=== PATIENT | male | born 1990 | race Caucasian/White ===

== ENCOUNTER 2020-01-10 10:59 | Emergency (ER) | payer MEDICAID, OTHER ==
--- NOTE | 2020-01-10 11:30 | EDM.PDOC ---
ED HPI GENERAL MEDICAL PROBLEM - General Chief Complaint: Abdominal Pain Stated Complaint: SEVERE ABD PAIN Time Seen by Provider: 01/10/20 11:23 - History of Present Illness INITIAL COMMENTS - FREE TEXT/NARRATIVE: Chris comes into [facility] ED with a 1/2 hr onset of acute periumbilical abdominal pain, nonradiating, with colicky features. There is some nausea, but no vomiting or diarrhea. He has no known GI or disorder, general health good, drank 2 beers and smoked 1 bowl (cannabis) last pm. He has tried no meds. Bilateral Middle Abdomen Pain Score (Numeric/FACES): 10 - Related Data Allergies Allergy/AdvReac Type Severity Reaction Status Date / Time amoxicillin Allergy Vomiting Verified 01/10/20 11:12 chloral hydrate Allergy Paralysis Verified 01/10/20 11:12 Penicillins Allergy Vomiting Verified 01/10/20 11:12 trazodone Allergy Vomiting Verified 01/10/20 11:12 Home Meds: Home Meds NK [No Known Home Meds] 01/10/20 [History] ED ROS GENERAL - Review of Systems Review Of Systems: See Below Constitutional: Reports: Decreased Appetite HEENT: Reports: No Symptoms Respiratory: Reports: No Symptoms Cardiovascular: Reports: No Symptoms Endocrine: Reports: No Symptoms GI/Abdominal: Reports: Abdominal Pain, Decreased Appetite, Nausea : Reports: No Symptoms Musculoskeletal: Reports: No Symptoms Skin: Reports: No Symptoms Neurological: Reports: No Symptoms Psychiatric: Reports: Anxiety Hematologic/Lymphatic: Reports: No Symptoms Immunologic: Reports: No Symptoms ED EXAM, GI/ABD - Physical Exam Exam: See Below Exam Limited By: No Limitations General Appearance: Alert, WD/WN, Anxious, Moderate Distress, Thin Eyes: Bilateral: Normal Appearance, EOMI Ears: Normal External Exam Nose: Normal Inspection Throat/Mouth: Normal Inspection, Normal Lips, Normal Oropharynx, Normal Voice, No Airway Compromise Head: Normocephalic Neck: Normal Inspection, Supple, Non-Tender, Full Range of Motion Respiratory/Chest: Lungs Clear, Chest Non-Tender Cardiovascular: Regular Rate, Rhythm, No Edema, No Murmur GI/Abdominal Exam: Normal Bowel Sounds, No Organomegaly, No Distention, No Mass , Guarding (periumbilical and RUQ without rebound or rigidity), Tender (Male) Exam: No Hernia Rectal (Males) Exam: Deferred Back Exam: Normal Inspection Extremities: Normal Inspection Neurological: Alert, Oriented, CN II-XII Intact, Normal Cognition, No Motor/ Sensory Deficits Psychiatric: Normal Affect, Anxious Skin Exam: Warm, Dry, Intact, Normal Color, No Rash Lymphatic: No Adenopathy Course - Vital Signs Text/Narrative:: Following assessment, I started an IV in the RUE, and administered Toradol 30 mg IV and Vistaril 50 mg IM for sx relief. Abd-Pelvis CT w and wo contrast noted pyeloectasis and ureteroectasis on the R, with nonspecific bladder wall thickening. Incidental finding of some small bowel wall thickening of unknown significance. Chris was administed Toradol 30 mg IV x 2, and Dilaudid 2 mg IV for pain managment prior to discharge. He passed 3 small stones, and these were sent for analysis. Follow up with PCP. Last Recorded V/S: Last Vital Signs Temp 98.3 C H 01/10/20 11:16 Pulse 69 01/10/20 11:16 Resp 16 01/10/20 11:16 BP 167/102 H 01/10/20 11:16 Pulse Ox 100 01/10/20 11:16 - Orders/Labs/Meds Orders: Active Orders 24 hr Category Date Time Status Abdomen Pelvis w Cont [CT] Stat Exams 01/10/20 13:34 Taken STONE ANALYSIS Routine Lab 01/10/20 15:24 Ordered URIC ACID [CHEM] Stat Lab 01/10/20 15:20 Ordered Sodium Chloride 0.9% [Normal Saline] 1,000 ml Med 01/10/20 11:45 Active IV ASDIRECTED Sodium Chloride 0.9% [Saline Flush] Med 01/10/20 11:31 Active 10 ml FLUSH ASDIRECTED PRN Peripheral IV Insertion Adult [OM.PC] Routine Oth 01/10/20 11:31 Ordered Medication Orders Sodium Chloride (Normal Saline) 1,000 mls @ 500 mls/hr IV ASDIRECTED DIETER Last Admin: 01/10/20 11:45 Dose: 500 mls/hr Sodium Chloride (Saline Flush) 10 ml FLUSH ASDIRECTED PRN PRN Reason: Keep Vein Open Labs: Laboratory Tests 01/10/20 01/10/20 01/10/20 Range/Units 11:30 11:30 11:35 WBC 8.1 (4.5-12.0) X10-3/uL RBC 4.90 (4.30-5.75) x10(6)uL Hgb 15.2 (13.5-17.8) g/dL Hct 45.0 (30.0-51.3) % MCV 92.0 (80-96) fL MCH 31.0 (27.7-33.6) pg MCHC 33.7 (32.2-35.4) g/dL RDW 14.0 (11.5-15.5) % Plt Count 254 (125-369) X10(3)uL MPV 8.2 (7.4-10.4) fL Neut % (Auto) 67.9 (46-82) % Lymph % (Auto) 18.5 (13-37) % [place] % (Auto) 11.0 (4-12) % Eos % (Auto) 1 (1.0-5.0) % Baso % (Auto) 2 (0-2) % Neut # (Auto) 5.5 (1.6-8.3) # Lymph # (Auto) 1.5 (0.6-5.0) # [place] # (Auto) 0.9 (0.0-1.3) # Eos # (Auto) 0.1 (0.0-0.8) # Baso # (Auto) 0.1 (0.0-0.2) # ESR 7 (0-15) mm/hr PT (9.0-11.1) sec INR (1.00-1.24) Sodium 141 (135-145) mmol/L Potassium 3.9 (3.5-5.3) mmol/L Chloride 102 (100-110) mmol/L Carbon Dioxide 21 (21-32) mmol/L BUN 7 (7-18) mg/dL Creatinine 1.3 (0.70-1.30) mg/dL Est Cr Clr Drug Dosing 77.83 mL/min Estimated GFR (MDRD) > 60 (>60) BUN/Creatinine Ratio 5.4 L (9-20) Glucose 125 H (80-116) mg/dL Lactic Acid (0.4-2.0) mmol/L Calcium 8.8 (8.6-10.2) mg/dL Total Bilirubin 0.6 (0.1-1.3) mg/dL AST 106 H (5-25) IU/L ALT 186 H* (12-36) U/L Alkaline Phosphatase 70 (56-112) IU/L C-Reactive Protein (0.5-0.9) mg/dL Total Protein 7.5 (6.0-8.0) g/dL Albumin 4.2 (3.5-5.2) g/dL Globulin 3.3 g/dL Albumin/Globulin Ratio 1.3 Amylase (25-115) U/L Urine Color (YELLOW) Urine Appearance (CLEAR) Urine pH (5.0-6.5) Ur Specific [place] (1.010-1.025) Urine Protein (NEGATIVE) mg/dL Urine Glucose (UA) (NORMAL) mg/dL Urine Ketones (NEGATIVE) mg/dL Urine Occult Blood (NEGATIVE) Urine Nitrite (NEGATIVE) Urine Bilirubin (NEGATIVE) Urine Urobilinogen (NEGATIVE) mg/dL Ur Leukocyte Esterase (NEGATIVE) Urine RBC (0-5) Urine WBC (0-5) Ur Squamous Epith Cells (NS,R,O) Urine Bacteria (NS) Urine Opiates Screen (NEGATIVE) Ur Oxycodone Screen (NEGATIVE) Ur Propoxyphene Screen (NEGATIVE) Ur Barbituates Screen (NEGATIVE) Ur Tricyclics Screen (NEGATIVE) Ur Phencyclidine Scrn (NEGATIVE) Ur Amphetamine Screen (NEGATIVE) Urine MDMA Screen (NEGATIVE) U Benzodiazepines Scrn (NEGATIVE) U Cocaine Metab Screen (NEGATIVE) U Marijuana (THC) Screen (NEGATIVE) 01/10/20 01/10/20 01/10/20 Range/Units 11:35 11:35 11:35 WBC (4.5-12.0) X10-3/uL RBC (4.30-5.75) x10(6)uL Hgb (13.5-17.8) g/dL Hct (30.0-51.3) % MCV (80-96) fL MCH (27.7-33.6) pg MCHC (32.2-35.4) g/dL RDW (11.5-15.5) % Plt Count (125-369) X10(3)uL MPV (7.4-10.4) fL Neut % (Auto) (46-82) % Lymph % (Auto) (13-37) % [place] % (Auto) (4-12) % Eos % (Auto) (1.0-5.0) % Baso % (Auto) (0-2) % Neut # (Auto) (1.6-8.3) # Lymph # (Auto) (0.6-5.0) # [place] # (Auto) (0.0-1.3) # Eos # (Auto) (0.0-0.8) # Baso # (Auto) (0.0-0.2) # ESR (0-15) mm/hr PT 10.1 (9.0-11.1) sec INR 0.94 L (1.00-1.24) Sodium (135-145) mmol/L Potassium (3.5-5.3) mmol/L Chloride (100-110) mmol/L Carbon Dioxide (21-32) mmol/L BUN (7-18) mg/dL Creatinine (0.70-1.30) mg/dL Est Cr Clr Drug Dosing mL/min Estimated GFR (MDRD) (>60) BUN/Creatinine Ratio (9-20) Glucose (80-116) mg/dL Lactic Acid (0.4-2.0) mmol/L Calcium (8.6-10.2) mg/dL Total Bilirubin (0.1-1.3) mg/dL AST (5-25) IU/L ALT (12-36) U/L Alkaline Phosphatase (56-112) IU/L C-Reactive Protein 0.2 L (0.5-0.9) mg/dL Total Protein (6.0-8.0) g/dL Albumin (3.5-5.2) g/dL Globulin g/dL Albumin/Globulin Ratio Amylase 48 (25-115) U/L Urine Color (YELLOW) Urine Appearance (CLEAR) Urine pH (5.0-6.5) Ur Specific [place] (1.010-1.025) Urine Protein (NEGATIVE) mg/dL Urine Glucose (UA) (NORMAL) mg/dL Urine Ketones (NEGATIVE) mg/dL Urine Occult Blood (NEGATIVE) Urine Nitrite (NEGATIVE) Urine Bilirubin (NEGATIVE) Urine Urobilinogen (NEGATIVE) mg/dL Ur Leukocyte Esterase (NEGATIVE) Urine RBC (0-5) Urine WBC (0-5) Ur Squamous Epith Cells (NS,R,O) Urine Bacteria (NS) Urine Opiates Screen (NEGATIVE) Ur Oxycodone Screen (NEGATIVE) Ur Propoxyphene Screen (NEGATIVE) Ur Barbituates Screen (NEGATIVE) Ur Tricyclics Screen (NEGATIVE) Ur Phencyclidine Scrn (NEGATIVE) Ur Amphetamine Screen (NEGATIVE) Urine MDMA Screen (NEGATIVE) U Benzodiazepines Scrn (NEGATIVE) U Cocaine Metab Screen (NEGATIVE) U Marijuana (THC) Screen (NEGATIVE) 01/10/20 01/10/20 01/10/20 Range/Units 12:15 12:15 13:35 WBC (4.5-12.0) X10-3/uL RBC (4.30-5.75) x10(6)uL Hgb (13.5-17.8) g/dL Hct (30.0-51.3) % MCV (80-96) fL MCH (27.7-33.6) pg MCHC (32.2-35.4) g/dL RDW (11.5-15.5) % Plt Count (125-369) X10(3)uL MPV (7.4-10.4) fL Neut % (Auto) (46-82) % Lymph % (Auto) (13-37) % [place] % (Auto) (4-12) % Eos % (Auto) (1.0-5.0) % Baso % (Auto) (0-2) % Neut # (Auto) (1.6-8.3) # Lymph # (Auto) (0.6-5.0) # [place] # (Auto) (0.0-1.3) # Eos # (Auto) (0.0-0.8) # Baso # (Auto) (0.0-0.2) # ESR (0-15) mm/hr PT (9.0-11.1) sec INR (1.00-1.24) Sodium (135-145) mmol/L Potassium (3.5-5.3) mmol/L Chloride (100-110) mmol/L Carbon Dioxide (21-32) mmol/L BUN (7-18) mg/dL Creatinine (0.70-1.30) mg/dL Est Cr Clr Drug Dosing mL/min Estimated GFR (MDRD) (>60) BUN/Creatinine Ratio (9-20) Glucose (80-116) mg/dL Lactic Acid 0.9 (0.4-2.0) mmol/L Calcium (8.6-10.2) mg/dL Total Bilirubin (0.1-1.3) mg/dL AST (5-25) IU/L ALT (12-36) U/L Alkaline Phosphatase (56-112) IU/L C-Reactive Protein (0.5-0.9) mg/dL Total Protein (6.0-8.0) g/dL Albumin (3.5-5.2) g/dL Globulin g/dL Albumin/Globulin Ratio Amylase (25-115) U/L Urine Color Yellow (YELLOW) Urine Appearance Slightly cloudy (CLEAR) Urine pH 8.0 H (5.0-6.5) Ur Specific [place] 1.010 (1.010-1.025) Urine Protein Negative (NEGATIVE) mg/dL Urine Glucose (UA) Normal (NORMAL) mg/dL Urine Ketones 50 H (NEGATIVE) mg/dL Urine Occult Blood Large H (NEGATIVE) Urine Nitrite Negative (NEGATIVE) Urine Bilirubin Negative (NEGATIVE) Urine Urobilinogen Normal (NEGATIVE) mg/dL Ur Leukocyte Esterase Negative (NEGATIVE) Urine RBC >100 H (0-5) Urine WBC 0-5 (0-5) Ur Squamous Epith Cells Rare (NS,R,O) Urine Bacteria Rare H (NS) Urine Opiates Screen Negative (NEGATIVE) Ur Oxycodone Screen Negative (NEGATIVE) Ur Propoxyphene Screen Negative (NEGATIVE) Ur Barbituates Screen Negative (NEGATIVE) Ur Tricyclics Screen Negative (NEGATIVE) Ur Phencyclidine Scrn Negative (NEGATIVE) Ur Amphetamine Screen Negative (NEGATIVE) Urine MDMA Screen Negative (NEGATIVE) U Benzodiazepines Scrn Negative (NEGATIVE) U Cocaine Metab Screen Negative (NEGATIVE) U Marijuana (THC) Screen Positive H (NEGATIVE) Meds: Medications Generic Name Dose Route Start Last Admin Trade Name Freq PRN Reason Stop Dose Admin Sodium Chloride 1,000 mls @ 500 mls/hr 01/10/20 11:45 01/10/20 11:45 Normal Saline IV 500 mls/hr ASDIRECTED DIETER Administration Sodium Chloride 10 ml 01/10/20 11:31 Saline Flush FLUSH ASDIRECTED PRN Keep Vein Open Discontinued Medications Generic Name Dose Route Start Last Admin Trade Name Freq PRN Reason Stop Dose Admin Diatrizoate Meglum/Diatrizoate Sod 30 ml 01/10/20 14:31 01/10/20 14:47 Gastrografin 37% PO 01/10/20 14:32 30 ml . DIRECTED ONE Administration Hydromorphone HCl 2 mg 01/10/20 12:47 01/10/20 12:50 Dilaudid IVPUSH 01/10/20 12:48 2 mg ONETIME ONE Administration Hydroxyzine HCl 50 mg 01/10/20 11:33 01/10/20 11:47 Vistaril IM 01/10/20 11:34 50 mg ONETIME ONE Administration Iopamidol 75 ml 01/10/20 14:31 01/10/20 14:49 Isovue-370 (76%) IV 01/10/20 14:32 Not Given ONETIME ONE Iopamidol 100 ml 01/10/20 14:49 01/10/20 14:50 Isovue-370 (76%) IV 01/10/20 14:50 75 ml . DIRECTED ONE Administration Ketorolac Tromethamine 30 mg 01/10/20 11:33 01/10/20 11:45 Toradol IVPUSH 01/10/20 11:34 30 mg ONETIME ONE Administration Departure - Departure Time of Disposition: 15:29 Disposition: Home, Self-Care 01 Condition: Fair Clinical Impression: Renal lithiasis - Discharge Information *PRESCRIPTION DRUG MONITORING PROGRAM REVIEWED*: Not Applicable *COPY OF PRESCRIPTION DRUG MONITORING REPORT IN PATIENT KELLY: Not Applicable Forms: ED Department Discharge Sepsis Event Note - Evaluation Sepsis Screening Result: No Definite Risk - Focused Exam Vital Signs: Vital Signs Temp Pulse Resp BP Pulse Ox 01/10/20 11:16 98.3 C H 69 16 167/102 H 100 Date Exam was Performed: 01/10/20 Time Exam was Performed: 15:24 - Problem List & Annotations (1) Renal lithiasis SNOMED Code(s): 09832436 Code(s): N20.0 - CALCULUS OF KIDNEY Status: Acute Current Visit: Yes Annotation/Comment:: I suggested rest, fluids, and analgesic of choice. - Problem List Review Problem List Initiated/Reviewed/Updated: Yes - My Orders Last 24 Hours: My Active Orders 01/10/20 11:31 Sodium Chloride 0.9% [Saline Flush] 10 ml FLUSH ASDIRECTED PRN Peripheral IV Insertion Adult [OM.PC] Routine 01/10/20 11:45 Sodium Chloride 0.9% [Normal Saline] 1,000 ml IV ASDIRECTED 01/10/20 13:34 Abdomen Pelvis w Cont [CT] Stat 01/10/20 15:20 URIC ACID [CHEM] Stat 01/10/20 15:24 STONE ANALYSIS Routine - Assessment/Plan Last 24 Hours: My Active Orders 01/10/20 11:31 Sodium Chloride 0.9% [Saline Flush] 10 ml FLUSH ASDIRECTED PRN Peripheral IV Insertion Adult [OM.PC] Routine 01/10/20 11:45 Sodium Chloride 0.9% [Normal Saline] 1,000 ml IV ASDIRECTED 01/10/20 13:34 Abdomen Pelvis w Cont [CT] Stat 01/10/20 15:20 URIC ACID [CHEM] Stat 01/10/20 15:24 STONE ANALYSIS Routine Plan: Follow up with PCP for results of stone analysis.
[2020-01-10] MEDS ORDERED: Sodium Chloride 0.9% 10 ML Syringe FLUSH PRN (11:31)
[2020-01-10] MEDS ORDERED: hydrOXYzine HCl 50 MG/ML SDV IM ONE (11:33)
[2020-01-10] MEDS ORDERED: Ketorolac 30 MG/ML SDV IVPUSH ONE ×2 (11:33→15:26)
[2020-01-10] MEDS ORDERED: Sodium Chloride 0.9% 1,000 ML IV SCH (11:45)
[2020-01-10] MEDS ORDERED: HYDROmorphone 2 MG/ML SDV IVPUSH ONE (12:47)
--- NOTE | 2020-01-10 13:57 | CT ---
INDICATION: Abdominal pain, possible right kidney stone - right-sided pain. CT ABDOMEN AND PELVIS WITHOUT CONTRAST: Spiral 2.5 mm axial sections were obtained through the abdomen and pelvis without contrast - renal calculus protocol, including sagittal and coronal reconstructions, 01/10/20 - no comparison. Total exam DLP was 379.11 mGy-cm. The lower lung richards and pleural spaces visualized appeared normal. The heart is normal in size - no pericardial effusion is seen. The appendix appeared normal visualized on axial images 134-144 and coronal images 30-35. No evidence of appendicitis. No evidence of free air or obstruction of the bowel was identified. There is an appearance of some thickening of the wall of several loops of jejunum, possibly extending into the area of ileum. The etiology is indeterminate, could be partly due to contractions. Unusual appearance in a few of the loops almost appeared to have a somewhat cystic appearance but is most likely simply fluid within the bowel with contractions on either side and thickening of the wall. Findings could be on the basis of Crohn's disease, although other etiology such as gastroenteritis would be a consideration. The stomach was not distended, and gastric wall thickening was not well determined in that regard. The upper abdominal organs, including the liver, gallbladder, adrenal glands, spleen, and pancreas appear to be normal. The left kidney appeared to be normal. The right kidney appeared to be normal, except that there is dilatation of the pyelocaliceal system and ureter down to the urinary bladder. However, no specific etiology of the apparent hydronephrosis on the right could be identified - no calculus was seen in the urinary bladder or in the ureter. No evidence of renal calcinosis. Thickening of the wall of the urinary bladder is noted raising question of cystitis. This should be correlated clinically. No evidence of hernia was identified. IMPRESSION: 1. There appears to have been at least recent obstructive uropathy on the right. No specific etiology is identified and the degree of obstruction would appear to be relatively [id number] - no ureteral or urinary bladder or renal calculi could be identified at this time, raising question of a recently passed calculus on the right - correlate clinically. 2. Thickening of the wall with multiple loops of small bowel with some fluid collections but no gross distention or air-fluid levels to strongly suggest a gross degree of obstruction, either paralytic or mechanical. Gastroenteritis could be present - correlate clinically. 3. No evidence of appendicitis is identified. Report was given in person to Dr. Cruz at 13:21 hours. [facility] HOSPITALBritany
[2020-01-10] MEDS ORDERED: Iopamidol 755 Mg/ML 75 ML Bottle IV ONE (14:31)
[2020-01-10] MEDS ORDERED: Diatrizoate Meglumine/Diatrizoate Sodium 37% 30 ML Bottle PO ONE (14:31)
[2020-01-10] MEDS ORDERED: Iopamidol 755 Mg/ML 100 ML Bottle IV ONE (14:49)
--- NOTE | 2020-01-10 17:25 | CT ---
INDICATION: Obstructive uropathy on the right, right flank pain, abdominal bowel wall thickening ? CT ABDOMEN AND PELVIS WITH CONTRAST AND DELAY FOR CT UROGRAM: Spiral 3.75 mm axial sections were obtained through the abdomen and pelvis with delay of 90 seconds initially and then approximately 20 minute delay with sagittal and coronal reconstructions 01/10/20 and compared with the noncontrast study of the same date. Total exam DLP was 832.91 mGy-cm for this portion of the examination. The liver, adrenal glands, spleen, pancreas, and gallbladder appeared normal. No filling defects are noted in the kidneys after contrast - no masses are seen. The ureters are relatively similar in caliber at this time although still slightly more prominent on the right. The ureters are well seen on CT urograms and extend into the bladder without evidence of obstructive uropathy bilaterally. The urinary bladder wall did not appear to be thickened. No evidence of bowel obstruction or significant persistence of bowel wall thickening is noted. It is possible that a small degree of thickening of the wall is present in an ileal loop but is of questionable significance. No new organomegaly, mass lesions or free fluid collections are identified in the abdomen and pelvis. IMPRESSION: Findings are compatible with recently passed calculus on the right. No current acute obstructive uropathy is identified. No evidence of renal calcinosis is seen. No evidence of bowel obstruction was seen. Report was given in person to Dr. Cruz immediately after the examination was available. [facility] FACILITYBritany
== END 2020-01-10 16:00 | disposition home or self-care (01) ==
LOC: FB.ED 10:59
DX: N20.0 Calculus of kidney (principal); Z88.1 Allergy status to other antibiotic agents; Z88.0 Allergy status to penicillin; Z88.5 Allergy status to narcotic agent
CPT/HCPCS: 74178; 80053; 80305; 81001; 82150; 82365; 83605; 84550; 85025; 85610; 85651; 86140; 96361; 96372; 96374; 96375; 96376; 99284; J1170; J1885; J3410; J7030; Q9963; Q9967; 74176; 74177

== ENCOUNTER 2020-04-09 20:59 | Emergency (ER) | payer MEDICAID ==
--- NOTE | 2020-04-09 22:06 | EDM.PDOC ---
ED HPI GENERAL MEDICAL PROBLEM - General Chief Complaint: Drug or Alcohol Abuse Stated Complaint: ALCOHOL Time Seen by Provider: 04/09/20 22:00 Source of Information: Reports: Patient, EMS, Family History Limitations: Reports: Intoxication - History of Present Illness INITIAL COMMENTS - FREE TEXT/NARRATIVE: 30-year-old male who reports that he has been drinking pretty much every day for about the past years and today he drank about two thirds of a bottle of bourbon and he has been feeling unwell today. He reports that most days he starts off by having episodes of vomiting and some dry heaving that seems to go away and he begins to drink and then drinks through the day. Today he reports that he drank more than he would normally drink and beginning at about 7 PM tonight he developed pain in his central chest that was a burning pain and a sharp pain. Told me that it really didn't seem to do better or worse with breathing or with movement but it is reproducible with palpation. He also appeared to be more out of it according to his family and with the symptoms 911 was called and he was transported to the hospital for evaluation. He tells me that he has nausea now but he has had no vomiting since this morning. He reports the pain in his chest is sharp and he rates it as a 6-7/10. He reports he also feels "bad all over" and he feels tired. He also tells me that he feels that he needs to stop drinking but he is unsure how he would do that. He has not really been eating is only been drinking alcohol and he reports he feels "malnourished". There are no other associated signs or symptoms. There are no other modifying factors. Onset: Today (Chest pain and malaise began today at 7 PM), Other (Ongoing problems without call abuse) Duration: Getting Worse Location: Reports: Chest, Generalized Quality: Reports: Ache, Sharp Severity: Moderate (to severe) Improves with: Reports: None Worsens with: Reports: Other (She reports that nothing seems to make it worse but it is made worse with palpation.) Associated Symptoms: Reports: Confusion (Decreased level of responsiveness today), Chest Pain, Headaches, Loss of Appetite, Malaise, Nausea/Vomiting, Weakness Treatments INSTALLATION HELPER: Reports: See EMS Report (He was given Zofran IV by the EMS staff that brought him in.) - Related Data Allergies Allergy/AdvReac Type Severity Reaction Status Date / Time amoxicillin Allergy Vomiting Verified 01/10/20 11:12 chloral hydrate Allergy Paralysis Verified 01/10/20 11:12 Penicillins Allergy Vomiting Verified 01/10/20 11:12 trazodone Allergy Vomiting Verified 01/10/20 11:12 Home Meds: Home Meds Promethazine [Phenergan] 25 mg PO Q6H PRN #12 tab 04/10/20 [Rx] Past Medical History Cardiovascular History: Reports: Other (See Below) Other Cardiovascular History: 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 Social & Family History - Tobacco Use Smoking Status *Q: Current Every Day Smoker Years of Tobacco use: 10 Packs/Tins Daily: 1 - Alcohol Use Days Per Week of Alcohol Use: 7 Number of Drinks Per Day: 18 Total Drinks Per Week: 126 - Recreational Drug Use Recreational Drug Use: Yes Recreational Drug Type: Reports: Marijuana/Hashish - Living Situation & Occupation Occupation: Unemployed Social History Comment: Currently living with a friend who is here with them and reports that he considers him his brother. ED ROS GENERAL - Review of Systems Review Of Systems: See Below Constitutional: Reports: Malaise, Weakness, Diaphoresis (Woke up tonight with these symptoms and was sweating and felt hot all over.) HEENT: Reports: No Symptoms Respiratory: Reports: No Symptoms Cardiovascular: Reports: Chest Pain, Lightheadedness GI/Abdominal: Reports: Nausea : Reports: No Symptoms Musculoskeletal: Reports: Other (Generalized body aches.) Skin: Denies: Bruising, Rash Neurological: Reports: Dizziness, Headache Psychiatric: Reports: Anxiety Hematologic/Lymphatic: Reports: No Symptoms Immunologic: Reports: No Symptoms - Physical Exam Exam: See Below Exam Limited By: No Limitations General Appearance: Alert, WD/WN, Moderate Distress, Other (There is strong odor vocalist breath.) Eye Exam: Bilateral Eye: EOMI, Normal Inspection (Sclera are anicteric) Ears: Normal External Exam, Hearing Grossly Normal Nose: Normal Inspection, Normal Mucosa, No Blood Throat/Mouth: Normal Voice, No Airway Compromise, Other (Dry mucous membranes. Alcohol on his breath.) Head Exam: Atraumatic, Normocephalic Neck: Normal Inspection, Supple, Non-Tender, Full Range of Motion Respiratory/Chest: No Respiratory Distress, Lungs Clear, Normal Breath Sounds, No Accessory Muscle Use, Other (Tenderness diffusely over the left costochondral area. This reproduces his pain.) Cardiovascular: Normal Peripheral Pulses, No JVD, No Murmur, Tachycardia GI/Abdominal: Normal Bowel Sounds, Soft, No Organomegaly, No Mass Neuro Exam (Abbreviated): Alert, Oriented, CN II-XII Intact, Normal Cognition, No Motor/Sensory Deficits Back Exam: Normal Inspection Extremities: Normal Inspection, Normal Range of Motion, Non-Tender, No Pedal Edema, Normal Capillary Refill Psychiatric: Anxious Skin Exam: Warm, Dry, Intact, Normal Color, No Rash EKG INTERPRETATION EKG Date: 04/10/20 Time: 21:05 Rhythm: NSR Rate (Beats/Min): 75 [place]: Normal P-Wave: Enlarged (Possible left atrial enlargement) QRS: RBBB ST-T: Normal QT: Prolonged Comparison: NA - No Prior EKG Course - Orders/Labs/Meds Orders: Active Orders 24 hr Category Date Time Status Accu Check [Blood Glucose Check, Bedside] [RC] ONETIME Care 04/10/20 01:12 Active EKG Documentation Completion [RC] ASDIRECTED Care 04/09/20 22:16 Active Ang Chest [CT] Stat Exams 04/09/20 23:11 Taken EKG 12 Lead [EK] Routine Ther 04/09/20 22:15 Ordered Labs: Laboratory Tests 04/09/20 04/09/20 04/09/20 Range/Units 22:30 22:30 22:30 WBC 8.6 (4.5-12.0) X10-3/uL RBC 4.90 (4.30-5.75) x10(6)uL Hgb 15.3 (13.5-17.8) g/dL Hct 45.4 (30.0-51.3) % MCV 92.7 (80-96) fL MCH 31.1 (27.7-33.6) pg MCHC 33.6 (32.2-35.4) g/dL RDW 13.3 (11.5-15.5) % Plt Count 214 (125-369) X10(3)uL MPV 8.2 (7.4-10.4) fL Neut % (Auto) 84.3 H (46-82) % Lymph % (Auto) 9.5 L (13-37) % [place] % (Auto) 5.7 (4-12) % Eos % (Auto) 0 L (1.0-5.0) % Baso % (Auto) 0 (0-2) % Neut # (Auto) 7.3 (1.6-8.3) # Lymph # (Auto) 0.8 (0.6-5.0) # [place] # (Auto) 0.5 (0.0-1.3) # Eos # (Auto) 0.0 (0.0-0.8) # Baso # (Auto) 0.0 (0.0-0.2) # D-Dimer, Quantitative 0.76 H (0.0-0.59) mg/LFEU Sodium 140 (135-145) mmol/L Potassium 3.3 L (3.5-5.3) mmol/L Chloride 103 (100-110) mmol/L Carbon Dioxide 21 (21-32) mmol/L BUN 11 (7-18) mg/dL Creatinine 0.8 (0.70-1.30) mg/dL Est Cr Clr Drug Dosing TNP Estimated GFR (MDRD) > 60 (>60) BUN/Creatinine Ratio 13.8 (9-20) Glucose 55 L (80-116) mg/dL POC Glucose (80-116) mg/dL Calcium 8.7 (8.6-10.2) mg/dL Magnesium 1.8 (1.8-2.5) mg/dL Total Bilirubin 0.6 (0.1-1.3) mg/dL AST 109 H (5-25) IU/L ALT 47 H D (12-36) U/L Alkaline Phosphatase 60 (56-112) IU/L Troponin I (4.0-60.3) pg/mL Total Protein 7.1 (6.0-8.0) g/dL Albumin 4.3 (3.5-5.2) g/dL Globulin 2.8 g/dL Albumin/Globulin Ratio 1.5 Ethyl Alcohol (<0.03) % 04/09/20 04/10/20 04/10/20 Range/Units 22:30 01:19 01:35 WBC (4.5-12.0) X10-3/uL RBC (4.30-5.75) x10(6)uL Hgb (13.5-17.8) g/dL Hct (30.0-51.3) % MCV (80-96) fL MCH (27.7-33.6) pg MCHC (32.2-35.4) g/dL RDW (11.5-15.5) % Plt Count (125-369) X10(3)uL MPV (7.4-10.4) fL Neut % (Auto) (46-82) % Lymph % (Auto) (13-37) % [place] % (Auto) (4-12) % Eos % (Auto) (1.0-5.0) % Baso % (Auto) (0-2) % Neut # (Auto) (1.6-8.3) # Lymph # (Auto) (0.6-5.0) # [place] # (Auto) (0.0-1.3) # Eos # (Auto) (0.0-0.8) # Baso # (Auto) (0.0-0.2) # D-Dimer, Quantitative (0.0-0.59) mg/LFEU Sodium (135-145) mmol/L Potassium (3.5-5.3) mmol/L Chloride (100-110) mmol/L Carbon Dioxide (21-32) mmol/L BUN (7-18) mg/dL Creatinine (0.70-1.30) mg/dL Est Cr Clr Drug Dosing Estimated GFR (MDRD) (>60) BUN/Creatinine Ratio (9-20) Glucose (80-116) mg/dL POC Glucose 135 H (80-116) mg/dL Calcium (8.6-10.2) mg/dL Magnesium (1.8-2.5) mg/dL Total Bilirubin (0.1-1.3) mg/dL AST (5-25) IU/L ALT (12-36) U/L Alkaline Phosphatase (56-112) IU/L Troponin I 7.6 8.2 (4.0-60.3) pg/mL Total Protein (6.0-8.0) g/dL Albumin (3.5-5.2) g/dL Globulin g/dL Albumin/Globulin Ratio Ethyl Alcohol 0.16 H* (<0.03) % Meds: Medications Discontinued Medications Generic Name Dose Route Start Last Admin Trade Name Odette PRN Reason Stop Dose Admin Dextrose/Water 50 ml 04/10/20 00:27 04/10/20 00:52 Dextrose 50% In Water IV 04/10/20 00:28 50 ml ONETIME ONE Administration Folic Acid 1 mg 04/10/20 22:19 Folic Acid IV 04/10/20 22:20 ONETIME ONE Folic Acid 1 mg 04/09/20 22:19 04/09/20 22:50 Folic Acid IV 04/09/20 22:20 1 mg ONETIME ONE Administration Sodium Chloride 1,000 mls @ 999 mls/hr 04/09/20 22:17 04/09/20 22:50 Normal Saline IV 04/09/20 23:17 999 mls/hr .BOLUS ONE Administration Sodium Chloride 500 mls @ 999 mls/hr 04/10/20 00:27 04/10/20 00:52 Normal Saline IV 04/10/20 00:57 999 mls/hr .BOLUS ONE Administration Iopamidol 100 ml 04/09/20 23:18 04/09/20 23:30 Isovue-370 (76%) IV 04/09/20 23:19 100 ml . DIRECTED ONE Administration Ketorolac Tromethamine 30 mg 04/09/20 23:18 04/10/20 00:20 Toradol IVPUSH 04/09/20 23:19 30 mg ONETIME ONE Administration Metoclopramide HCl 10 mg 04/09/20 23:18 04/10/20 00:19 Reglan IVPUSH 04/09/20 23:19 10 mg ONETIME ONE Administration Multivitamins/Minerals 10 ml 04/09/20 22:17 04/09/20 22:50 Infuvite Adult IV 04/09/20 22:18 10 ml ASDIRECTED ONE Administration Ondansetron HCl 4 mg 04/09/20 22:16 04/09/20 22:26 Zofran IVPUSH 04/09/20 22:17 4 mg ONETIME ONE Administration Thiamine HCl 100 mg 04/10/20 22:20 Vitamin B-1 IVPUSH 04/10/20 22:21 ONETIME ONE Thiamine HCl Confirm 04/09/20 22:32 04/09/20 22:39 Vitamin B-1 Administered 04/09/20 22:33 Not Given Dose 200 mg .ROUTE .STK-MED ONE Thiamine HCl 100 mg 04/09/20 22:20 04/09/20 22:40 Vitamin B-1 IVPUSH 04/09/20 22:21 100 mg ONETIME ONE Administration - Radiology Interpretation Free Text/Narrative:: Portable chest x-ray showed no acute disease. CTA of the chest showed no evidence of pulmonary emboli or any other acute intrathoracic abnormality per the radiologist. - Re-Assessments/Exams Free Text/Narrative Re-Assessment/Exam: 04/09/20 23:00: Patient still with pain in his chest. He still has nausea. She troponin was negative. He has been given Zofran for his nausea without relief and I will give him Reglan now. I will also give him Toradol 30 mg IV for his pain. Vitally he remains stable. 04/10/20 00:05: His blood sugar had been somewhat low initially was 135 on repeat but I did in addition to the "banana bag" that he received earlier give him a 500 bolus of normal saline with an amp of D50 in this. I also did a CTA of his chest because d-dimer is elevated and he was having chest pain. CT of his chest was negative. The plan will be to repeat his troponin at 2:30 AM. This will represent 6-7 hour level after initial onset of chest pain and also 3 hours after the troponin done here. 04/10/20 02:45: Patient feels much improved. His chest pain has resolved. No more nausea. He has been ambulating to the bathroom several times without problems. His awake, alert and appropriate. We will call his "brother" and pick him up and take him home. She is stable for discharge at this point and he feels comfortable with discharge. I have strongly encouraged him to seek alcohol counseling and detox. He should also follow-up with his primary provider. Departure - Departure Time of Disposition: 03:25 Disposition: Home, Self-Care 01 Condition: Good (Improved) Clinical Impression: Alcohol abuse, Non-cardiac chest pain, Dehydration Acute alcohol intoxication Qualifiers: Complication of substance-induced condition: uncomplicated Qualified Code(s): F10.920 - Alcohol use, unspecified with intoxication, uncomplicated - Discharge Information Prescriptions: Promethazine [Phenergan] 25 mg PO Q6H PRN #12 tab PRN Reason: Nausea/Vomiting Instructions: Alcohol Abuse and Dependence Information, Adult, Alcohol Intoxication, [id number], Dehydration, Adult, [id number], Nonspecific Chest Pain, Adult, [id number] Referrals: PCP,None [Primary Care Provider] - Forms: ED Department Discharge Additional Instructions: Your blood tests were all reassuringly normal except for your elevated alcohol level. Your EKG was normal. Your heart tests were normal 2. Chest x-ray and the CT scan of your chest ruled out any pneumonia and blood clots in your lungs. Your symptoms seem to revolve around your abuse of alcohol. You need to seek help with alcohol treatment and alcohol abuse counseling. You should take a multivitamin every day. Medication as prescribed for nausea control (Phenergan 25 mg). Rest. Drink plenty of fluids. Back to the emergency department for unrelenting vomiting, trouble breathing, worsening chest pain or any other concerning sign or symptom. - My Orders Last 24 Hours: My Active Orders 04/09/20 22:15 EKG 12 Lead [EK] Routine 04/09/20 22:16 EKG Documentation Completion [RC] ASDIRECTED 04/09/20 23:11 Ang Chest [CT] Stat 04/10/20 01:12 Accu Check [Blood Glucose Check, Bedside] [RC] ONETIME - Assessment/Plan Last 24 Hours: My Active Orders 04/09/20 22:15 EKG 12 Lead [EK] Routine 04/09/20 22:16 EKG Documentation Completion [RC] ASDIRECTED 04/09/20 23:11 Ang Chest [CT] Stat 04/10/20 01:12 Accu Check [Blood Glucose Check, Bedside] [RC] ONETIME
[2020-04-09] MEDS ORDERED: Ondansetron 4 MG/2 ML SDV IVPUSH ONE (22:16)
[2020-04-09] MEDS ORDERED: MVI, Adult with Vitamin K 10 ML SDV IV ONE (22:17)
[2020-04-09] MEDS ORDERED: Sodium Chloride 0.9% 1,000 ML IV ONE (22:17)
[2020-04-09] MEDS ORDERED: Folic Acid 50 MG/10 ML MDV IV ONE (22:19)
[2020-04-09] MEDS ORDERED: Thiamine 200 MG/2 ML MDV IVPUSH ONE (22:20)
[2020-04-09] MEDS ORDERED: Thiamine 200 MG/2 ML MDV ONE (22:32)
[2020-04-09] MEDS ORDERED: Ketorolac 30 MG/ML SDV IVPUSH ONE (23:18)
[2020-04-09] MEDS ORDERED: Metoclopramide 10 MG/2 ML SDV IVPUSH ONE (23:18)
[2020-04-09] MEDS ORDERED: Iopamidol 755 Mg/ML 100 ML Bottle IV ONE (23:18)
[2020-04-10] MEDS ORDERED: Sodium Chloride 0.9% 500 ML IV ONE (00:27)
[2020-04-10] MEDS ORDERED: 50% Dextrose in Water 50 ML Syringe IV ONE (00:27)
--- NOTE | 2020-04-10 11:04 | CR ---
INDICATION: Chest pain. CHEST, ONE VIEW: Portable AP upright view of the chest revealed the heart and mediastinum to be unremarkable. A very minimal sigmoid scoliosis of the mid thoracic spine is noted. Overlying EKG leads are noted. An active infiltrate or effusion was not identified. The lungs appear to be somewhat hyperaerated - correlate clinically as to the possibility of obstructive airway disease. IMPRESSION: 1. No definite acute process. 2. Very minimal scoliosis. 3. Question possibility of obstructive airway disease - correlate clinically. MTDD
[2020-04-10] MEDS ORDERED: Folic Acid 50 MG/10 ML MDV IV ONE (22:19)
[2020-04-10] MEDS ORDERED: Thiamine 200 MG/2 ML MDV IVPUSH ONE (22:20)
== END 2020-04-10 03:55 | disposition home or self-care (01) ==
LOC: FB.ED 20:59
DX: F10.120 Alcohol abuse with intoxication, uncomplicated (principal); Y90.6 Blood alcohol level of 120-199 mg/100 ml; R07.89 Other chest pain; E86.0 Dehydration; F17.210 Nicotine dependence, cigarettes, uncomplicated; Z88.1 Allergy status to other antibiotic agents; Z91.048 Other nonmedicinal substance allergy status; Z88.0 Allergy status to penicillin; Z88.5 Allergy status to narcotic agent
CPT/HCPCS: 36415; 71045; 71275; 80053; 80307; 82962; 83735; 84484; 85025; 85379; 93005; 96365; 96367; 96368; 96375; 99284; J1885; J2405; J2765; J3411; J7030; J7040; Q9967; J3490

== ENCOUNTER 2020-06-15 15:15 | Emergency (ER) | payer MEDICAID, OTHER ==
[2020-06-15] MEDS ORDERED: Ondansetron 4 MG/2 ML SDV IVPUSH ONE (15:41)
[2020-06-15] MEDS ORDERED: LORazepam 2 MG/ML SDV IVPUSH ONE (15:41)
[2020-06-15] MEDS ORDERED: Sodium Chloride 0.9% 1,000 ML IV ONE (15:41)
--- NOTE | 2020-06-15 15:41 | EDM.PDOC ---
ED HPI GENERAL MEDICAL PROBLEM - General Chief Complaint: Gastrointestinal Problem Time Seen by Provider: 06/15/20 15:15 Source of Information: Reports: Patient History Limitations: Reports: No Limitations - History of Present Illness INITIAL COMMENTS - FREE TEXT/NARRATIVE: pt comes in to ER ambulatory and very panicky , c/o recurrent N/V since the morning, denies any diarrhea or abd pain, fever or chills, or any known sick contact or possibility of bad food pt denies any other associated sx or any other medical concerns. pt has past Hx of anxiety and substance abuse . 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 Social & Family History - Living Situation & Occupation Occupation: Unemployed ED ROS GENERAL - Review of Systems Review Of Systems: See Below Constitutional: Reports: Fatigue. Denies: Fever, Chills HEENT: Reports: No Symptoms Respiratory: Reports: Shortness of Breath. Denies: Cough Cardiovascular: Reports: No Symptoms GI/Abdominal: Reports: Nausea, Vomiting. Denies: Abdominal Pain, Constipation, Diarrhea : Reports: No Symptoms Musculoskeletal: Reports: No Symptoms Skin: Reports: No Symptoms Neurological: Reports: No Symptoms ED EXAM, GENERAL - Physical Exam Exam: See Below Exam Limited By: No Limitations General Appearance: Anxious, Mild Distress, Moderate Distress Eye Exam: Bilateral Eye: Normal Inspection Nose: Normal Inspection Throat/Mouth: Normal Inspection Head: Atraumatic, Normocephalic Neck: Normal Inspection Respiratory/Chest: No Respiratory Distress, Lungs Clear Cardiovascular: Normal Peripheral Pulses, Regular Rate, Rhythm GI/Abdominal: Normal Bowel Sounds, Soft, Non-Tender Back Exam: Normal Inspection, Full Range of Motion Extremities: Normal Inspection, Normal Range of Motion Neurological: Alert, Oriented, CN II-XII Intact, No Motor/Sensory Deficits Skin Exam: Warm Course - Vital Signs Text/Narrative:: lab results were emplaned to pt , pt feels comfortable after fluids , ativan and zofran. pt presented with panic attack and sx of gastritis, he is stable for discharge home with supportive mng. Rx on zofran was given , pt to maintain good hydration and to follow with PCP in 2 days for re-check if continued sx. Last Recorded V/S: Last Vital Signs Temp 36.3 C 06/15/20 15:15 Pulse 115 H 06/15/20 15:15 Resp 26 H 06/15/20 15:15 BP 151/66 H 06/15/20 15:15 Pulse Ox 100 06/15/20 15:15 - Orders/Labs/Meds Orders: Active Orders 24 hr Category Date Time Status Sodium Chloride 0.9% [Normal Saline] 1,000 ml Med 06/15/20 15:41 Active IV .BOLUS Medication Orders Sodium Chloride (Normal Saline) 1,000 mls @ 999 drops/hr IV .BOLUS ONE Stop: 06/16/20 06:41 Labs: Laboratory Tests 06/15/20 06/15/20 Range/Units 15:52 15:52 WBC 13.9 H (4.5-12.0) X10-3/uL RBC 5.23 (4.30-5.75) x10(6)uL Hgb 15.5 (13.5-17.8) g/dL Hct 46.6 (30.0-51.3) % MCV 89.0 (80-96) fL MCH 29.7 (27.7-33.6) pg MCHC 33.3 (32.2-35.4) g/dL RDW 12.5 (11.5-15.5) % Plt Count 273 (125-369) X10(3)uL MPV 8.4 (7.4-10.4) fL Add Manual Diff Yes Neutrophils % (Manual) 87 H (46-82) % Band Neutrophils % 1 (0-6) % Lymphocytes % (Manual) 8 L (13-37) % Monocytes % (Manual) 4 (4-12) % Sodium 140 (135-145) mmol/L Potassium 3.7 (3.5-5.3) mmol/L Chloride 98 L D (100-110) mmol/L Carbon Dioxide 20 L (21-32) mmol/L BUN 13 (7-18) mg/dL Creatinine 1.1 (0.70-1.30) mg/dL Est Cr Clr Drug Dosing 87.40 mL/min Estimated GFR (MDRD) > 60 (>60) BUN/Creatinine Ratio 11.8 (9-20) Glucose 120 H (80-116) mg/dL Calcium 9.8 (8.6-10.2) mg/dL Total Bilirubin 1.3 (0.1-1.3) mg/dL AST 25 D (5-25) IU/L ALT 14 D (12-36) U/L Alkaline Phosphatase 65 (56-112) IU/L Total Protein 7.6 (6.0-8.0) g/dL Albumin 4.7 (3.5-5.2) g/dL Globulin 2.9 g/dL Albumin/Globulin Ratio 1.6 Meds: Medications Generic Name Dose Route Start Last Admin Trade Name Freq PRN Reason Stop Dose Admin Sodium Chloride 1,000 mls @ 999 drops/hr 06/15/20 15:41 Normal Saline IV 06/16/20 06:41 .BOLUS ONE Discontinued Medications Generic Name Dose Route Start Last Admin Trade Name Freq PRN Reason Stop Dose Admin Lorazepam 1 mg 06/15/20 15:41 Ativan IVPUSH 06/15/20 15:42 ONETIME ONE Ondansetron HCl 4 mg 06/15/20 15:41 Zofran IVPUSH 06/15/20 15:42 ONETIME ONE Departure - Departure Time of Disposition: 16:39 Disposition: Home, Self-Care 01 Clinical Impression: Gastritis - Discharge Information Referrals: PCP,None [Primary Care Provider] - Forms: ED Department Discharge Sepsis Event Note (ED) - Evaluation Sepsis Screening Result: No Definite Risk - Focused Exam Vital Signs: Vital Signs Temp Pulse Resp BP Pulse Ox 06/15/20 15:15 36.3 C 115 H 26 H 151/66 H 100 - My Orders Last 24 Hours: My Active Orders 06/15/20 15:41 Sodium Chloride 0.9% [Normal Saline] 1,000 ml IV .BOLUS - Assessment/Plan Last 24 Hours: My Active Orders 06/15/20 15:41 Sodium Chloride 0.9% [Normal Saline] 1,000 ml IV .BOLUS
== END 2020-06-15 17:25 | disposition home or self-care (01) ==
LOC: FB.ED 15:15
DX: K29.70 Gastritis, unspecified, without bleeding (principal); Z88.1 Allergy status to other antibiotic agents; Z88.0 Allergy status to penicillin; Z88.5 Allergy status to narcotic agent; Z88.8 Allergy status to other drugs, medicaments and biological substances
CPT/HCPCS: 36415; 80053; 85025; 96361; 96374; 96375; 99284; J2060; J2405; J7030

== ENCOUNTER 2020-08-26 13:17 | Emergency (ER) | payer MEDICAID ==
[2020-08-26] MEDS ORDERED: Sodium Chloride 0.9% 10 ML Syringe FLUSH PRN (13:32)
[2020-08-26] MEDS ORDERED: LORazepam 2 MG/ML SDV IVPUSH STA (13:34)
[2020-08-26] MEDS ORDERED: Ondansetron 4 MG/2 ML SDV IVPUSH ONE (13:34)
[2020-08-26] MEDS ORDERED: Prochlorperazine 10 MG in Sodium Chloride 0.9% 50 ML IV ONE (13:34)
[2020-08-26] MEDS ORDERED: Thiamine 100 MG in Sodium Chloride 0.9% 100 ML IV ONE (13:34)
[2020-08-26] MEDS ORDERED: Prochlorperazine 10 MG/2 ML SDV IVPUSH ONE (13:44)
[2020-08-26] MEDS ORDERED: Sodium Chloride 0.9% 1,000 ML IV SCH ×2 (13:45→14:45)
[2020-08-26] MEDS ORDERED: Thiamine 200 MG/2 ML MDV IVPUSH ONE (14:00)
[2020-08-26] MEDS ORDERED: Thiamine 200 MG/2 ML MDV IVPUSH STA (14:01)
--- NOTE | 2020-08-26 14:24 | EDM.PDOC ---
ED HPI GENERAL MEDICAL PROBLEM - General Chief Complaint: Gastrointestinal Problem Stated Complaint: N/V Time Seen by Provider: 08/26/20 13:45 Source of Information: Reports: Patient History Limitations: Reports: No Limitations - History of Present Illness INITIAL COMMENTS - FREE TEXT/NARRATIVE: Patient presented to the ED because of N/V after drinking all day today. He is a chronic alcoholic who started drinking heavily 14 years ago. There is no fever/chills/cough or cold symptoms. there is no abdominal pain, diarrhea or constipatione. Denies having seizure from alcohol intoxication or withdrawal. - Related Data Allergies Allergy/AdvReac Type Severity Reaction Status Date / Time acetaminophen [From Vicodin] Allergy Other Verified 08/26/20 13:50 amoxicillin Allergy Vomiting Verified 06/15/20 15:23 chloral hydrate Allergy Paralysis Verified 06/15/20 15:23 hydrocodone Allergy Other Verified 08/26/20 13:50 Penicillins Allergy Vomiting Verified 06/15/20 15:23 trazodone Allergy Vomiting Verified 06/15/20 15:23 Home Meds: Home Meds Promethazine [Phenergan] 25 mg PO Q6H PRN #12 tab 04/10/20 [Rx] Ondansetron [Zofran ODT] 4 mg PO Q6H PRN 06/15/20 [History] Ondansetron [Zofran ODT] 4 mg PO Q6H PRN #10 tab.dis 06/15/20 [Rx] Promethazine [Phenergan] 25 mg PO Q6H PRN #15 tab 08/26/20 [Rx] Past Medical History Cardiovascular History: Reports: Other (See Below) Other Cardiovascular History: 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 Social & Family History - Family History Family Medical History: No Pertinent Family History - Caffeine Use Caffeine Use: Reports: Coffee, Energy Drinks - Living Situation & Occupation Occupation: Unemployed ED ROS GENERAL - Review of Systems Review Of Systems: See Below Constitutional: Reports: No Symptoms HEENT: Reports: No Symptoms Respiratory: Reports: No Symptoms Cardiovascular: Reports: No Symptoms Endocrine: Reports: No Symptoms GI/Abdominal: Reports: Nausea, Vomiting : Reports: No Symptoms Musculoskeletal: Reports: No Symptoms Skin: Reports: No Symptoms Neurological: Reports: No Symptoms Psychiatric: Reports: No Symptoms Hematologic/Lymphatic: Reports: No Symptoms ED EXAM, GI/ABD - Physical Exam Exam: See Below Exam Limited By: No Limitations General Appearance: Alert, No Apparent Distress Ears: Normal External Exam, Normal [place] Nose: Normal Inspection, Normal Mucosa Throat/Mouth: Normal Inspection, Normal Lips, Normal Teeth Head: Atraumatic, Normocephalic Neck: Normal Inspection, Supple, Non-Tender, Full Range of Motion Respiratory/Chest: No Respiratory Distress, Lungs Clear, Normal Breath Sounds Cardiovascular: Normal Peripheral Pulses, Regular Rate, Rhythm, No Edema, No Gallop GI/Abdominal Exam: Normal Bowel Sounds, Soft, Non-Tender, No Organomegaly Back Exam: Normal Inspection, Full Range of Motion Course - Vital Signs Text/Narrative:: Labs/CXR was reviewed with patient NS 1 L bolus Zofran 4 mg IV x1 Compazine 10 mg IV x1 Ativan 1 mg IV x1 Thiamine 100 mg IV x1 Last Recorded V/S: Last Vital Signs Temp 36.1 C 08/26/20 13:17 Pulse 74 08/26/20 13:17 Resp 20 08/26/20 13:17 BP 137/80 08/26/20 13:17 Pulse Ox 100 08/26/20 13:17 - Orders/Labs/Meds Orders: Active Orders 24 hr Category Date Time Status Chest 1V Frontal [CR] Stat Exams 08/26/20 13:35 Taken DRUG SCREEN, URINE ALERE [URCHEM] Stat Lab 08/26/20 15:40 Ordered Sodium Chloride 0.9% [Normal Saline] 1,000 ml Med 08/26/20 13:45 Active IV ASDIRECTED Sodium Chloride 0.9% [Normal Saline] 1,000 ml Med 08/26/20 14:45 Active IV ASDIRECTED Sodium Chloride 0.9% [Saline Flush] Med 08/26/20 13:32 Active 10 ml FLUSH ASDIRECTED PRN Saline Lock Insert [OM.PC] Routine Oth 08/26/20 13:32 Ordered Medication Orders Sodium Chloride (Normal Saline) 1,000 mls @ 999 mls/hr IV ASDIRECTED DIETER Last Admin: 08/26/20 13:35 Dose: 999 mls/hr Documented by: ROSMERY Sodium Chloride (Normal Saline) 1,000 mls @ 999 mls/hr IV ASDIRECTED DIETER Last Admin: 08/26/20 14:36 Dose: 999 mls/hr Documented by: ROSMERY Sodium Chloride (Saline Flush) 10 ml FLUSH ASDIRECTED PRN PRN Reason: Keep Vein Open Last Admin: 08/26/20 14:00 Dose: 10 ml Documented by: ROSMERY Labs: Laboratory Tests 08/26/20 08/26/20 08/26/20 Range/Units 14:05 14:05 14:05 WBC 6.7 (3.2-10.1) x10-3/uL RBC 5.20 (3.90-5.90) x10(6)uL Hgb 15.9 (12.9-17.7) g/dL Hct 47.6 (38.3-50.1) % MCV 91.6 (80.8-98.7) fL MCH 30.6 (27.0-33.3) pg MCHC 33.5 (28.7-35.3) g/dL RDW 14.1 (12.4-15.0) % Plt Count 211 (117-477) x10(3)uL MPV 7.9 (6.7-11.0) fL Neut % (Auto) 74.9 H (40.3-71.8) % Lymph % (Auto) 20.5 (15.8-45.3) % [place] % (Auto) 3.7 L (5.5-15.2) % Eos % (Auto) 0.1 (0.1-6.8) % Baso % (Auto) 0.8 (0.3-3.8) % Neut # (Auto) 5.0 (1.7-6.9) x10-3/uL Lymph # (Auto) 1.4 (0.5-4.5) x10-3/uL [place] # (Auto) 0.3 (0.0-1.2) x10-3/uL Eos # (Auto) 0.0 (0.0-0.6) x10-3/uL Baso # (Auto) 0.1 (0.0-0.3) x10-3/uL Sodium 139 (135-145) mmol/L Potassium 3.8 (3.5-5.3) mmol/L Chloride 101 (100-110) mmol/L Carbon Dioxide 21 (21-32) mmol/L BUN 10 (7-18) mg/dL Creatinine 1.0 (0.70-1.30) mg/dL Est Cr Clr Drug Dosing TNP Estimated GFR (MDRD) > 60 (>60) BUN/Creatinine Ratio 10.0 (9-20) Glucose 102 (80-116) mg/dL Calcium 8.3 L (8.6-10.2) mg/dL Total Bilirubin 0.4 (0.1-1.3) mg/dL AST 35 H D (5-25) IU/L ALT 20 D (12-36) U/L Alkaline Phosphatase 63 (56-112) IU/L Total Protein 7.5 (6.0-8.0) g/dL Albumin 4.2 (3.5-5.2) g/dL Globulin 3.3 g/dL Albumin/Globulin Ratio 1.3 Amylase 56 (25-115) U/L Lipase 69 L (73-393) U/L Ethyl Alcohol 0.21 H* (<0.03) % Meds: Medications Generic Name Dose Route Start Last Admin Trade Name Freq PRN Reason Stop Dose Admin Sodium Chloride 1,000 mls @ 999 mls/hr 08/26/20 13:45 08/26/20 13:35 Normal Saline IV 999 mls/hr ASDIRECTED DIETER Administration Sodium Chloride 1,000 mls @ 999 mls/hr 08/26/20 14:45 08/26/20 14:36 Normal Saline IV 999 mls/hr ASDIRECTED DIETER Administration Sodium Chloride 10 ml 08/26/20 13:32 08/26/20 14:00 Saline Flush FLUSH 10 ml ASDIRECTED PRN Administration Keep Vein Open Discontinued Medications Generic Name Dose Route Start Last Admin Trade Name Freq PRN Reason Stop Dose Admin Prochlorperazine Edisylate 10 52 mls @ 150 mls/hr 08/26/20 13:34 mg/ Sodium Chloride IV 08/26/20 13:54 ONETIME ONE Thiamine HCl 100 mg/ Sodium 101 mls @ 202 mls/hr 08/26/20 13:34 Chloride IV 08/26/20 13:35 ONETIME ONE Lorazepam 1 mg 08/26/20 13:34 08/26/20 13:54 Ativan IVPUSH 08/26/20 13:35 1 mg NOW STA Administration Ondansetron HCl 4 mg 08/26/20 13:34 08/26/20 13:44 Zofran IVPUSH 08/26/20 13:35 4 mg ONETIME ONE Administration Prochlorperazine Edisylate 10 mg 08/26/20 13:44 08/26/20 13:45 Compazine IVPUSH 08/26/20 13:45 10 mg ONETIME ONE Administration Thiamine HCl 1 mg 08/26/20 14:00 Vitamin B-1 IVPUSH 08/26/20 14:01 ONETIME ONE Thiamine HCl 100 mg 08/26/20 14:01 08/26/20 14:02 Vitamin B-1 IVPUSH 08/26/20 14:02 100 mg NOW STA Administration Departure - Departure Time of Disposition: 15:50 Disposition: Home, Self-Care 01 Condition: Good Clinical Impression: Alcohol intoxication - Discharge Information Prescriptions: Promethazine [Phenergan] 25 mg PO Q6H PRN #15 tab PRN Reason: Nausea Instructions: Alcohol Intoxication, [id number], Dehydration, Adult, [id number] Referrals: PCP,None [Primary Care Provider] - Forms: ED Department Discharge Additional Instructions: Please read discharge instructions on alcohol intoxication Follow up with your doctor so you can be treated for your alcohol issues Phenergan 25 mg every 6 hours as needed for nausea Sepsis Event Note (ED) - Focused Exam Vital Signs: Vital Signs Temp Pulse Resp BP Pulse Ox 08/26/20 13:17 36.1 C 74 20 137/80 100 - My Orders Last 24 Hours: My Active Orders 08/26/20 13:32 Sodium Chloride 0.9% [Saline Flush] 10 ml FLUSH ASDIRECTED PRN Saline Lock Insert [OM.PC] Routine 08/26/20 13:35 Chest 1V Frontal [CR] Stat 08/26/20 13:45 Sodium Chloride 0.9% [Normal Saline] 1,000 ml IV ASDIRECTED 08/26/20 14:45 Sodium Chloride 0.9% [Normal Saline] 1,000 ml IV ASDIRECTED 08/26/20 15:40 DRUG SCREEN, URINE ALERE [URCHEM] Stat - Assessment/Plan Last 24 Hours: My Active Orders 08/26/20 13:32 Sodium Chloride 0.9% [Saline Flush] 10 ml FLUSH ASDIRECTED PRN Saline Lock Insert [OM.PC] Routine 08/26/20 13:35 Chest 1V Frontal [CR] Stat 08/26/20 13:45 Sodium Chloride 0.9% [Normal Saline] 1,000 ml IV ASDIRECTED 08/26/20 14:45 Sodium Chloride 0.9% [Normal Saline] 1,000 ml IV ASDIRECTED 08/26/20 15:40 DRUG SCREEN, URINE ALERE [URCHEM] Stat
--- NOTE | 2020-08-26 16:19 | CR ---
INDICATION: Persistent nausea and vomiting/alcoholic. CHEST ONE VIEW: An AP upright view of the chest was obtained 08/26/20 and compared with 04/09/20 revealing no significant interval change or definite acute process. No active infiltrate or effusion was seen. The heart is normal in size and shape, mediastinum was unremarkable. A mild dextroconcave scoliosis of the mid thoracic spine is again noted. IMPRESSION: Stable chest, no acute process. MTDD
== END 2020-08-26 15:50 | disposition home or self-care (01) ==
LOC: FB.ED 13:17
DX: F10.129 Alcohol abuse with intoxication, unspecified (principal); Z88.1 Allergy status to other antibiotic agents; Z88.0 Allergy status to penicillin; Z88.5 Allergy status to narcotic agent; Z88.8 Allergy status to other drugs, medicaments and biological substances
CPT/HCPCS: 36415; 71045; 80053; 80305-QW; 80307; 82150; 83690; 85025; 96374; 96375; 99284-25; 99285; J0780; J2060; J2405; J3411; J7030

== ENCOUNTER 2020-10-16 20:03 | Emergency (ER) | payer MEDICAID ==
[2020-10-16] MEDS ORDERED: Ondansetron 4 MG/2 ML SDV IVPUSH ONE (20:09)
[2020-10-16] MEDS ORDERED: Promethazine 25 MG in Sodium Chloride 0.9% 50 ML IV STA (20:09)
[2020-10-16] MEDS ORDERED: Sodium Chloride 0.9% 1,000 ML IV SCH ×2 (20:15)
[2020-10-16] MEDS ORDERED: Prochlorperazine 10 MG/2 ML SDV IVPUSH ONE (23:06)
[2020-10-16] MEDS ORDERED: Potassium Chloride 20 MEQ Tab.ER PO ONE (23:12)
--- NOTE | 2020-10-16 23:12 | EDM.PDOC ---
ED HPI GENERAL MEDICAL PROBLEM - General Chief Complaint: Gastrointestinal Problem Stated Complaint: VOMITING Time Seen by Provider: 10/16/20 20:10 Source of Information: Reports: Patient History Limitations: Reports: No Limitations - History of Present Illness INITIAL COMMENTS - FREE TEXT/NARRATIVE: states he has had nausea vomiting for 3 day s and not able to keep anything down till today , but then vomited agin . Has generalized abdominal pain Onset: Gradual Onset Date: 10/13/20 Duration: Getting Worse Location: Reports: Chest (chest discomfort with vomiting) Quality: Reports: Ache, Dull Improves with: Reports: None Worsens with: Reports: None - Related Data Allergies Allergy/AdvReac Type Severity Reaction Status Date / Time acetaminophen [From Vicodin] Allergy Other Verified 08/26/20 13:50 amoxicillin Allergy Vomiting Verified 06/15/20 15:23 chloral hydrate Allergy Paralysis Verified 06/15/20 15:23 hydrocodone Allergy Other Verified 08/26/20 13:50 Penicillins Allergy Vomiting Verified 06/15/20 15:23 trazodone Allergy Vomiting Verified 06/15/20 15:23 Home Meds: Home Meds Promethazine [Phenergan] 25 mg PO Q6H PRN #12 tab 04/10/20 [Rx] Ondansetron [Zofran ODT] 4 mg PO Q6H PRN 06/15/20 [History] Ondansetron [Zofran ODT] 4 mg PO Q6H PRN #10 tab.dis 06/15/20 [Rx] Promethazine [Phenergan] 25 mg PO Q6H PRN #15 tab 08/26/20 [Rx] Ondansetron [Zofran ODT] 4 mg PO Q6H PRN #20 tab.dis 10/16/20 [Rx] Past Medical History Cardiovascular History: Reports: Other (See Below) Other Cardiovascular History: 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 Gastrointestinal History: Reports: Other (See Below) Other Gastrointestinal History: Episodes of vomiting. Genitourinary History: Reports: Renal Calculus Musculoskeletal History: Reports: Other (See Below) Other Musculoskeletal History: Patient reports history of spinal stenosis. 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 Psychiatric History: Reports: Addiction, Anxiety, Depression, PTSD Other Psychiatric History: Currently not treated; reports taking Zoloft in the past. States drinks alcohol daily and marijuana use. - Past Surgical History HEENT Surgical History: Reports: Oral Surgery Social & Family History - Family History Family Medical History: No Pertinent Family History - Tobacco Use Tobacco Use Status *Q: Current Every Day Tobacco User Years of Tobacco use: 15 Packs/Tins Daily: 0.5 - Caffeine Use Caffeine Use: Reports: Coffee, Energy Drinks - Alcohol Use Days Per Week of Alcohol Use: 7 Number of Drinks Per Day: 2 Total Drinks Per Week: 14 - Recreational Drug Use Recreational Drug Use: Yes Recreational Drug Type: Reports: Marijuana/Hashish - Living Situation & Occupation Occupation: Unemployed ED ROS GENERAL - Review of Systems Review Of Systems: Comprehensive ROS is negative, except as noted in HPI. ED EXAM, GI/ABD - Physical Exam Exam: See Below Exam Limited By: No Limitations General Appearance: Alert, WD/WN, Anxious, Mild Distress (vomiting in pain) Eyes: Bilateral: Abnormal EOM Ears: Normal External Exam Nose: Normal Mucosa Throat/Mouth: Normal Inspection, Normal Oropharynx Head: Atraumatic, Normocephalic Neck: Supple, Non-Tender, Full Range of Motion Respiratory/Chest: No Respiratory Distress, Lungs Clear Cardiovascular: Normal Peripheral Pulses, Regular Rate, Rhythm GI/Abdominal Exam: Soft, Non-Tender Back Exam: Normal Inspection, Full Range of Motion Extremities: Normal Range of Motion Neurological: Alert, Oriented, CN II-XII Intact Psychiatric: Normal Affect, Normal Mood Skin Exam: Warm, Dry, Intact Lymphatic: No Adenopathy Course - Vital Signs Last Recorded V/S: Last Vital Signs Temp 36.4 C 10/16/20 20:10 Pulse 76 10/16/20 20:10 Resp 20 10/16/20 20:10 BP 143/94 H 10/16/20 20:10 Pulse Ox 99 10/16/20 20:10 - Orders/Labs/Meds Orders: Active Orders 24 hr Category Date Time Status EKG Documentation Completion [RC] ASDIRECTED Care 10/16/20 20:21 Active Sodium Chloride 0.9% [Normal Saline] 1,000 ml Med 10/16/20 20:15 Active IV ASDIRECTED Sodium Chloride 0.9% [Normal Saline] 1,000 ml Med 10/16/20 20:15 Active IV ASDIRECTED EKG 12 Lead [EK] Routine Ther 10/16/20 20:21 Ordered Medication Orders Sodium Chloride (Normal Saline) 1,000 mls @ 999 mls/hr IV ASDIRECTED [facility] Last Admin: 10/16/20 20:15 Dose: 999 mls/hr Documented by: NESS Sodium Chloride (Normal Saline) 1,000 mls @ 125 mls/hr IV ASDIRECTED [facility] Last Infusion: 10/16/20 23:05 Dose: 999 mls/hr Documented by: Admin: 10/16/20 21:36 Dose: 125 mls/hr Documented by: NESS Labs: Laboratory Tests 10/16/20 10/16/20 10/16/20 Range/Units 20:15 20:15 20:15 WBC 8.7 (3.2-10.1) x10-3/uL RBC 5.19 (3.90-5.90) x10(6)uL Hgb 15.9 (12.9-17.7) g/dL Hct 47.0 (38.3-50.1) % MCV 90.5 (80.8-98.7) fL MCH 30.7 (27.0-33.3) pg MCHC 34.0 (28.7-35.3) g/dL RDW 13.3 (12.4-15.0) % Plt Count 296 (117-477) x10(3)uL MPV 7.7 (6.7-11.0) fL Neut % (Auto) 61.1 (40.3-71.8) % Lymph % (Auto) 28.4 (15.8-45.3) % [place] % (Auto) 9.6 (5.5-15.2) % Eos % (Auto) 0.1 (0.1-6.8) % Baso % (Auto) 0.8 (0.3-3.8) % Neut # (Auto) 5.3 (1.7-6.9) x10-3/uL Lymph # (Auto) 2.5 (0.5-4.5) x10-3/uL [place] # (Auto) 0.8 (0.0-1.2) x10-3/uL Eos # (Auto) 0.0 (0.0-0.6) x10-3/uL Baso # (Auto) 0.1 (0.0-0.3) x10-3/uL Sodium 139 (135-145) mmol/L Potassium 3.4 L (3.5-5.3) mmol/L Chloride 97 L (100-110) mmol/L Carbon Dioxide 18 L (21-32) mmol/L BUN 9 (7-18) mg/dL Creatinine 1.0 (0.70-1.30) mg/dL Est Cr Clr Drug Dosing TNP Estimated GFR (MDRD) > 60 (>60) BUN/Creatinine Ratio 9.0 (9-20) Glucose 88 (80-116) mg/dL Calcium 8.9 (8.6-10.2) mg/dL Magnesium 1.8 (1.8-2.5) mg/dL Total Bilirubin 0.6 (0.1-1.3) mg/dL AST 35 H (5-25) IU/L ALT 21 (12-36) U/L Alkaline Phosphatase 69 (56-112) IU/L Total Protein 8.1 H (6.0-8.0) g/dL Albumin 5.1 (3.5-5.2) g/dL Globulin 3.0 g/dL Albumin/Globulin Ratio 1.7 Meds: Medications Generic Name Dose Route Start Last Admin Trade Name Freq PRN Reason Stop Dose Admin Sodium Chloride 1,000 mls @ 999 mls/hr 10/16/20 20:15 10/16/20 20:15 Normal Saline IV 999 mls/hr ASDIRECTED DIETER Administration Sodium Chloride 1,000 mls @ 125 mls/hr 10/16/20 20:15 10/16/20 23:05 Normal Saline IV 999 mls/hr ASDIRECTED DIETER Infusion Discontinued Medications Generic Name Dose Route Start Last Admin Trade Name Freq PRN Reason Stop Dose Admin Promethazine HCl 25 mg/ Sodium 51 mls @ 200 mls/hr 10/16/20 20:09 10/16/20 20:30 Chloride IV 10/16/20 20:24 200 mls/hr NOW STA Administration Ondansetron HCl 8 mg 10/16/20 20:09 10/16/20 20:20 Zofran IVPUSH 10/16/20 20:10 8 mg ONETIME ONE Administration Potassium Chloride 40 meq 10/16/20 23:12 10/16/20 23:31 Klor-Con M20 PO 10/16/20 23:13 40 meq ONETIME ONE Administration Prochlorperazine Edisylate 10 mg 10/16/20 23:06 10/16/20 23:13 Compazine IVPUSH 10/16/20 23:07 10 mg ONETIME ONE Administration - Re-Assessments/Exams Free Text/Narrative Re-Assessment/Exam: 10/16/20 23:12 pt givn IV fluids, zofran fel yarely liu then requested for more Departure - Departure Time of Disposition: 00:05 Disposition: Home, Self-Care 01 Condition: Fair Clinical Impression: Abdominal pain, Vomiting - Discharge Information *PRESCRIPTION DRUG MONITORING PROGRAM REVIEWED*: Not Applicable Prescriptions: Ondansetron [Zofran ODT] 4 mg PO Q6H PRN #20 tab.dis PRN Reason: Nausea Instructions: Nausea and Vomiting, Adult, [id number], Dehydration, Adult, [id number] Referrals: PCP,None [Primary Care Provider] - Forms: ED Department Discharge Additional Instructions: 1) Increase oral fluid intake 2) make appointment to follow up with your provider Sepsis Event Note (ED) - Evaluation Sepsis Screening Result: No Definite Risk - Focused Exam Vital Signs: Vital Signs Temp Pulse Resp BP Pulse Ox 10/16/20 20:10 36.4 C 76 20 143/94 H 99 - My Orders Last 24 Hours: My Active Orders 10/16/20 20:15 Sodium Chloride 0.9% [Normal Saline] 1,000 ml IV ASDIRECTED Sodium Chloride 0.9% [Normal Saline] 1,000 ml IV ASDIRECTED 10/16/20 20:21 EKG Documentation Completion [RC] ASDIRECTED EKG 12 Lead [EK] Routine - Assessment/Plan Last 24 Hours: My Active Orders 10/16/20 20:15 Sodium Chloride 0.9% [Normal Saline] 1,000 ml IV ASDIRECTED Sodium Chloride 0.9% [Normal Saline] 1,000 ml IV ASDIRECTED 10/16/20 20:21 EKG Documentation Completion [RC] ASDIRECTED EKG 12 Lead [EK] Routine
== END 2020-10-17 00:10 | disposition home or self-care (01) ==
LOC: FB.ED 20:03
DX: R11.2 Nausea with vomiting, unspecified (principal); R10.84 Generalized abdominal pain; Z72.0 Tobacco use; Z88.6 Allergy status to analgesic agent; Z88.0 Allergy status to penicillin; Z88.8 Allergy status to other drugs, medicaments and biological substances; Z88.5 Allergy status to narcotic agent
CPT/HCPCS: 36415; 80053; 83735; 85025; 93005; 96374; 96375; 99284; A9270; J0780; J2405; J2550; J7030

== ENCOUNTER 2021-02-20 21:40 | Emergency (ER) | payer MEDICAID ==
[2021-02-20] MEDS ORDERED: Sodium Chloride 0.9% 1,000 ML IV ONE (22:33)
--- NOTE | 2021-02-20 22:39 | EDM.PDOC ---
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 has been voided, voided here ate a large supper with a couple of entrees drinks alcohol daily, not working, lives with another adult [place] who is not ill no f/c/d, no n/v - Related Data Allergies Allergy/AdvReac Type Severity Reaction Status Date / Time amoxicillin Allergy Vomiting Verified 02/20/21 22:30 chloral hydrate Allergy Paralysis, Verified 02/20/21 22:30 Vomiting, Migraine hydrocodone Allergy Doesn't Verified 02/20/21 22:30 want to take Penicillins Allergy Vomiting, Verified 02/20/21 22:30 Migraine trazodone Allergy Vomiting Verified 02/20/21 22:30 Home Meds: Home Meds NK [No Known Home Meds] 02/20/21 [History] Past Medical History Cardiovascular History: Reports: Other (See Below) Other Cardiovascular History: 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 Gastrointestinal History: Reports: Other (See Below) Other Gastrointestinal History: Episodes of vomiting. Genitourinary History: Reports: Renal Calculus Musculoskeletal History: Reports: Other (See Below) Other Musculoskeletal History: Patient reports history of spinal stenosis. 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 Psychiatric History: Reports: Addiction, Anxiety, Depression, PTSD Other Psychiatric History: Currently not treated; reports taking Zoloft in the past. States drinks alcohol daily and marijuana use. - Past Surgical History HEENT Surgical History: Reports: Oral Surgery Social & Family History - Family History Family Medical History: No Pertinent Family History - Caffeine Use Caffeine Use: Reports: Coffee, Energy Drinks - Living Situation & Occupation Occupation: Unemployed ED ROS GENERAL - Review of Systems Review Of Systems: See Below Constitutional: Reports: No Symptoms, Weakness. Denies: Fever, Chills, Decreased Appetite HEENT: Reports: Vision Change Respiratory: Reports: No Symptoms Cardiovascular: Reports: No Symptoms Endocrine: Reports: No Symptoms GI/Abdominal: Reports: No Symptoms. Denies: Abdominal Pain, Nausea, Vomiting : Reports: No Symptoms Musculoskeletal: Reports: No Symptoms Skin: Reports: No Symptoms Neurological: Reports: Dizziness. Denies: Headache Psychiatric: Reports: No Symptoms Hematologic/Lymphatic: Reports: No Symptoms Immunologic: Reports: No Symptoms ED EXAM, GENERAL - Physical Exam Exam: See Below Exam Limited By: No Limitations General Appearance: Alert, WD/WN, Anxious, Other (sitting in chair, leaning forward with elbows on knees, anxious) Ears: Hearing Grossly Normal Nose: Normal Inspection Throat/Mouth: Normal Inspection, Normal Voice, No Airway Compromise Head: Atraumatic, Normocephalic Neck: Normal Inspection, Supple, Non-Tender, Full Range of Motion. No: Lymphadenopathy (R), Lymphadenopathy (L) Respiratory/Chest: No Respiratory Distress, Lungs Clear, Chest Non-Tender Cardiovascular: Regular Rate, Rhythm, No Edema, No Murmur GI/Abdominal: Soft, Non-Tender, No Distention Back Exam: Normal Inspection, Full Range of Motion. No: CVA Tenderness (R), CVA Tenderness (L) Extremities: Normal Inspection, Normal Range of Motion, Non-Tender, No Pedal Edema Neurological: Alert, Oriented, CN II-XII Intact, Normal Cognition, No Motor/Sensory Deficits Psychiatric: Anxious Skin Exam: Warm, Dry, Intact, Normal Color, No Rash, Other (skin turgor does not appear particularly dec'd, no tenting) Lymphatic: No Adenopathy Course - Vital Signs Last Recorded V/S: Last Vital Signs Temp 37.2 C 02/20/21 21:45 Pulse 99 02/20/21 21:45 Resp 18 02/20/21 21:45 BP 136/84 02/20/21 21:45 Pulse Ox 100 02/20/21 21:45 - Orders/Labs/Meds Labs: Laboratory Tests 02/20/21 02/20/21 02/20/21 Range/Units 22:35 23:05 23:05 WBC 5.1 (3.2-10.1) x10-3/uL RBC 4.45 (3.90-5.90) x10(6)uL Hgb 14.2 (12.9-17.7) g/dL Hct 42.2 (38.3-50.1) % MCV 95.0 (80.8-98.7) fL MCH 31.9 (27.0-33.3) pg MCHC 33.6 (28.7-35.3) g/dL RDW 13.9 (12.4-15.0) % Plt Count 243 (117-477) x10(3)uL MPV 8.1 (6.7-11.0) fL Neut % (Auto) 48.1 (40.3-71.8) % Lymph % (Auto) 39.9 (15.8-45.3) % Dickens % (Auto) 10.2 (5.5-15.2) % Eos % (Auto) 0.7 (0.1-6.8) % Baso % (Auto) 1.1 (0.3-3.8) % Neut # (Auto) 2.4 (1.7-6.9) x10-3/uL Lymph # (Auto) 2.0 (0.5-4.5) x10-3/uL Dickens # (Auto) 0.5 (0.0-1.2) x10-3/uL Eos # (Auto) 0.0 (0.0-0.6) x10-3/uL Baso # (Auto) 0.1 (0.0-0.3) x10-3/uL Sodium 144 (135-145) mmol/L Potassium 4.0 (3.5-5.3) mmol/L Chloride 107 D (100-110) mmol/L Carbon Dioxide 25 (21-32) mmol/L BUN 10 (7-18) mg/dL Creatinine 0.9 (0.70-1.30) mg/dL Est Cr Clr Drug Dosing 101.30 mL/min Estimated GFR (MDRD) > 60 (>60) BUN/Creatinine Ratio 11.1 (9-20) Glucose 77 L (80-116) mg/dL Calcium 7.8 L (8.6-10.2) mg/dL Magnesium 1.9 (1.8-2.5) mg/dL Total Bilirubin 0.3 (0.1-1.3) mg/dL AST 41 H D (5-25) IU/L ALT 35 D (12-36) U/L Alkaline Phosphatase 62 (56-112) IU/L Total Protein 7.3 (6.0-8.0) g/dL Albumin 4.2 (3.5-5.2) g/dL Globulin 3.1 g/dL Albumin/Globulin Ratio 1.4 Urine Color Yellow (YELLOW) Urine Appearance Clear (CLEAR) Urine pH 5.0 (5.0-6.5) Ur Specific [place] 1.020 (1.010-1.025) Urine Protein Negative (NEGATIVE) mg/dL Urine Glucose (UA) Normal (NORMAL) mg/dL Urine Ketones Negative (NEGATIVE) mg/dL Urine Occult Blood Negative (NEGATIVE) Urine Nitrite Negative (NEGATIVE) Urine Bilirubin Negative (NEGATIVE) Urine Urobilinogen 1 H (NEGATIVE) mg/dL Ur Leukocyte Esterase Negative (NEGATIVE) Urine RBC 0-5 (0-5) Urine WBC 0-5 (0-5) Ur Squamous Epith Cells Not seen (NS,R,O) Urine Bacteria Not seen (NS) Meds: Medications Discontinued Medications Generic Name Dose Route Start Last Admin Trade Name Freq PRN Reason Stop Dose Admin Sodium Chloride 1,000 mls @ 999 mls/hr 02/20/21 22:33 02/20/21 22:55 Normal Saline IV 02/20/21 23:33 999 mls/hr .BOLUS ONE Administration - Re-Assessments/Exams Free Text/Narrative Re-Assessment/Exam: 02/20/21 23:49 labs neg, has mild inc'd AST which he has had in past which is almost certainly alc related no abnormal electrolytes pt stated "I am feeling much better" after one liter of NS and was eager to home pt states he has AC where he lives altho it sounds as if it not connected and working Departure - Departure Time of Disposition: 23:47 Disposition: Home, Self-Care 01 Condition: Good Clinical Impression: Heat exhaustion - Discharge Information *PRESCRIPTION DRUG MONITORING PROGRAM REVIEWED*: Not Applicable *COPY OF PRESCRIPTION DRUG MONITORING REPORT IN PATIENT KELLY: Not Applicable Instructions: Heat Exhaustion, Preventing Heat Exhaustion, Adult Forms: ED Department Discharge Additional Instructions: Maintain fluids. Get adequate rest. Use fans and moisture on skin as needed to prevent excessive heat. See your physician in 2-3 days if you are still having symptoms. Sepsis Event Note (ED) - Focused Exam Vital Signs: Vital Signs Temp Pulse Resp BP Pulse Ox 02/20/21 21:45 37.2 C 99 18 136/84 100
== END 2021-02-21 00:20 | disposition home or self-care (01) ==
LOC: FB.ED 21:40
DX: T67.5XXA Heat exhaustion, unspecified, initial encounter (principal); Z88.0 Allergy status to penicillin; Z88.5 Allergy status to narcotic agent
CPT/HCPCS: 36415; 80053; 81001; 83735; 85025; 99284; J7030

== ENCOUNTER 2021-03-17 00:12 | Emergency (ER) | payer MEDICAID ==
--- NOTE | 2021-03-17 00:51 | EDM.PDOC ---
ED HPI GENERAL MEDICAL PROBLEM - General Chief Complaint: Back Pain or Injury Stated Complaint: REALLY BAD LOWER BACK PAIN Time Seen by Provider: 03/17/21 00:47 Source of Information: Reports: Patient History Limitations: Reports: No Limitations - History of Present Illness INITIAL COMMENTS - FREE TEXT/NARRATIVE: Presents with worsening left mid back pain, onset after wrestling with a friend one month ago. Pain initially was mild, now worse. Denies hematuria. Pain is exacerbated with movement, improved with laying flat for several hours. He has not taken any OTC pain meds. Patient has a prior h/o kidney stones. Duration: Week(s): (4) Location: Reports: Back. Denies: Radiates to Quality: Reports: Ache Severity: Moderate left flank/rib Pain Score (Numeric/FACES): 9 - Related Data Allergies Allergy/AdvReac Type Severity Reaction Status Date / Time amoxicillin Allergy Vomiting Verified 03/17/21 00:18 chloral hydrate Allergy Paralysis, Verified 03/17/21 00:18 Vomiting, Migraine hydrocodone Allergy Doesn't Verified 03/17/21 00:18 want to take Penicillins Allergy Vomiting, Verified 03/17/21 00:18 Migraine trazodone Allergy Vomiting Verified 03/17/21 00:18 Home Meds: Home Meds NK [No Known Home Meds] 02/20/21 [History] Past Medical History Cardiovascular History: Reports: Other (See Below) Other Cardiovascular History: 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 Gastrointestinal History: Reports: Other (See Below) Other Gastrointestinal History: Episodes of vomiting. Genitourinary History: Reports: Renal Calculus Musculoskeletal History: Reports: Other (See Below) Other Musculoskeletal History: Patient reports history of spinal stenosis. 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 Psychiatric History: Reports: ADHD, Addiction, Anxiety, Depression, OCD, Panic Attack, PTSD Other Psychiatric History: Currently not treated; reports taking Zoloft in the past. States drinks alcohol daily and marijuana use. Separation anxiety. - Past Surgical History HEENT Surgical History: Reports: Oral Surgery Social & Family History - Family History Family Medical History: No Pertinent Family History - Tobacco Use Tobacco Use Status *Q: Current Every Day Tobacco User Years of Tobacco use: 12 Packs/Tins Daily: 0 - Caffeine Use Caffeine Use: Reports: Coffee, Energy Drinks - Alcohol Use Alcohol Use History: Yes Alcohol Use in Last Twelve Months: Yes Alcohol Use Frequency: Daily - Recreational Drug Use Recreational Drug Use: Yes Drug Use in Last 12 Months: Yes Recreational Drug Type: Reports: Marijuana/Hashish - Living Situation & Occupation Occupation: Unemployed ED ROS GENERAL - Review of Systems Review Of Systems: Comprehensive ROS is negative, except as noted in HPI. ED EXAM,LOWER BACK PAIN/INJURY - Physical Exam Exam: See Below Exam Limited By: No Limitations General Appearance: Alert, WD/WN, No Apparent Distress Nose: Normal Inspection Throat/Mouth: Normal Voice, No Airway Compromise Head: Atraumatic, Normocephalic Neck: Full Range of Motion Respiratory/Chest: No Respiratory Distress, Lungs Clear, Normal Breath Sounds Cardiovascular: Regular Rate, Rhythm, No Murmur GI/Abdominal: Normal Bowel Sounds, Soft, Non-Tender, No Distention Back Exam: Other (left mid back tenderness, no crepitus) Extremities: Normal Range of Motion Neurological: Alert, Normal Mood/Affect, Oriented x 3 Skin Exam: Warm, Dry, Intact Course - Vital Signs Last Recorded V/S: Last Vital Signs Temp 37.3 C 03/17/21 00:20 Pulse 102 H 03/17/21 00:20 Resp 20 03/17/21 00:20 BP 149/84 H 03/17/21 00:20 Pulse Ox 96 03/17/21 00:20 - Orders/Labs/Meds Orders: Active Orders 24 hr Category Date Time Status Ribs 2V w Chest Lt [CR] Stat Exams 03/17/21 00:46 Ordered Labs: Laboratory Tests 03/17/21 Range/Units 00:30 Urine Color Yellow (YELLOW) Urine Appearance Clear (CLEAR) Urine pH 7.0 H (5.0-6.5) Ur Specific [place] 1.010 (1.010-1.025) Urine Protein Negative (NEGATIVE) mg/dL Urine Glucose (UA) Normal (NORMAL) mg/dL Urine Ketones Negative (NEGATIVE) mg/dL Urine Occult Blood Negative (NEGATIVE) Urine Nitrite Negative (NEGATIVE) Urine Bilirubin Negative (NEGATIVE) Urine Urobilinogen Normal (NEGATIVE) mg/dL Ur Leukocyte Esterase Negative (NEGATIVE) Urine RBC 0-5 (0-5) Urine WBC 0-5 (0-5) Ur Squamous Epith Cells Not seen (NS,R,O) Urine Bacteria Not seen (NS) - Radiology Interpretation Free Text/Narrative:: Left Rib with CXR: Departure - Departure Time of Disposition: 01:25 Disposition: Home, Self-Care 01 Condition: Good Clinical Impression: Back pain Qualifiers: Back pain location: thoracic back pain Chronicity: unspecified Back pain laterality: left Qualified Code(s): M54.6 - Pain in thoracic spine - Discharge Information *PRESCRIPTION DRUG MONITORING PROGRAM REVIEWED*: No *COPY OF PRESCRIPTION DRUG MONITORING REPORT IN PATIENT KELLY: Not Applicable Instructions: Rib Contusion Forms: ED Department Discharge Additional Instructions: Take Tylenol or Ibuprofen as needed. Follow up with a Primary Physician in 2-3 days if symptoms persist. Sepsis Event Note (ED) - Evaluation Sepsis Screening Result: No Definite Risk - Focused Exam Vital Signs: Vital Signs Temp Pulse Resp BP Pulse Ox 03/17/21 00:20 37.3 C 102 H 20 149/84 H 96 - My Orders Last 24 Hours: My Active Orders 03/17/21 00:46 Ribs 2V w Chest Lt [CR] Stat - Assessment/Plan Last 24 Hours: My Active Orders 03/17/21 00:46 Ribs 2V w Chest Lt [CR] Stat
--- NOTE | 2021-03-17 10:52 | CR ---
INDICATION: Injury while wrestling one month prior. LEFT RIBS WITH CHEST: Two PA views of the chest with two additional views of the left ribs were obtained 03/17/21 and compared with chest x-rays from 08/26/20 and 04/09/20. The heart and mediastinum are unremarkable. A definite active infiltrate, effusion, contusion or pneumothorax was not identified. No displaced fracture or other definite bony abnormality was identified. Depending upon clinical necessity, more advanced imaging such as CT or nuclear bone imaging, may be helpful for further evaluation. IMPRESSION: No active disease. MTDD
== END 2021-03-17 01:30 | disposition home or self-care (01) ==
LOC: FB.ED 00:12
DX: M54.6 Pain in thoracic spine (principal); Z72.0 Tobacco use; Z88.0 Allergy status to penicillin; Z88.1 Allergy status to other antibiotic agents; Z88.5 Allergy status to narcotic agent
CPT/HCPCS: 71101-LT; 81001; 99282; 99283-25

== ENCOUNTER 2021-04-04 12:17 | Emergency (ER) | payer MEDICAID ==
--- NOTE | 2021-04-04 13:06 | EDM.PDOC ---
ED HPI GENERAL MEDICAL PROBLEM - General Chief Complaint: Flank Pain Stated Complaint: KIDNEY PAIN Time Seen by Provider: 04/04/21 13:01 Source of Information: Reports: Patient, EMS History Limitations: Reports: Altered Mental Status - History of Present Illness INITIAL COMMENTS - FREE TEXT/NARRATIVE: Intoxicated 31-year-old gentleman called 911 requested transfer to the emergency department for evaluation of left flank and kidney pain. Patient is oriented to person but is likely intoxicated. He states that he has a history of passing several renal stones but has never been treated. He complains of severe left flank pain radiating to the groin, hematuria, and states that he thinks that he has a urinary tract infection. He states that he drinks a significant amount of whiskey every day. He has never stopped drinking long enough to have withdrawals. He denies any other substance abuse. He does not have a primary care physician and has not been to the doctor in this area. left side flank Pain Score (Numeric/FACES): 10 - Related Data Allergies Allergy/AdvReac Type Severity Reaction Status Date / Time amoxicillin Allergy Vomiting Verified 03/17/21 00:18 chloral hydrate Allergy Paralysis, Verified 03/17/21 00:18 Vomiting, Migraine hydrocodone Allergy Doesn't Verified 03/17/21 00:18 want to take Penicillins Allergy Vomiting, Verified 03/17/21 00:18 Migraine trazodone Allergy Vomiting Verified 03/17/21 00:18 Home Meds: Home Meds NK [No Known Home Meds] 02/20/21 [History] Past Medical History Cardiovascular History: Reports: Other (See Below) Other Cardiovascular History: 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 Gastrointestinal History: Reports: Other (See Below) Other Gastrointestinal History: Episodes of vomiting. Genitourinary History: Reports: Renal Calculus Musculoskeletal History: Reports: Other (See Below) Other Musculoskeletal History: Patient reports history of spinal stenosis. 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 Psychiatric History: Reports: ADHD, Addiction, Anxiety, Depression, OCD, Panic Attack, PTSD Other Psychiatric History: Currently not treated; reports taking Zoloft in the past. States drinks alcohol daily and marijuana use. Separation anxiety. - Past Surgical History HEENT Surgical History: Reports: Oral Surgery Social & Family History - Family History Family Medical History: No Pertinent Family History - Caffeine Use Caffeine Use: Reports: Coffee, Energy Drinks - Living Situation & Occupation Occupation: Unemployed ED ROS GENERAL - Review of Systems Review Of Systems: See Below Constitutional: Reports: Decreased Appetite HEENT: Reports: No Symptoms Respiratory: Reports: No Symptoms Cardiovascular: Reports: No Symptoms Endocrine: Reports: No Symptoms GI/Abdominal: Reports: Abdominal Pain, Anorexia, Nausea : Reports: No Symptoms, Dysuria, Flank Pain, Hematuria Musculoskeletal: Reports: No Symptoms Skin: Reports: No Symptoms Neurological: Reports: No Symptoms Psychiatric: Reports: No Symptoms Hematologic/Lymphatic: Reports: No Symptoms Immunologic: Reports: No Symptoms ED EXAM, GI/ABD - Physical Exam Exam: See Below Exam Limited By: Altered Mental Status General Appearance: Alert, Thin Respiratory/Chest: No Respiratory Distress, Lungs Clear Cardiovascular: Normal Peripheral Pulses, Regular Rate, Rhythm, No Edema GI/Abdominal Exam: Normal Bowel Sounds, Guarding, Tender, Other (Significant left flank pain radiating to the groin with tenderness to palpation throughout the left lower quadrant and pelvis) (Male) Exam: Circumcised. No: Penile Lesions, Scrotal Swelling, Urethral Discharge Extremities: Normal Inspection Neurological: Alert, Slow to Respond, Other (Oriented to person only) Psychiatric: Other (Likely intoxicated) Skin Exam: Warm, Dry, Intact Course - Vital Signs Text/Narrative:: CT exam revealed small nonobstructing nephrolithiasis in the right kidney. Patient was treated with a bolus of IV fluids and banana bag, and he was able to eat a portion of a dinner tray. He continues to have significant pain in the penile urethra. Patient will be given a second dose of 30 mg Toradol IV patient agreed to STD testing including HIV. Patient declined referral to drug/alcohol rehabilitation at this time but requested information regarding rehabilitation. Patient was able to walk more than 100 feet and maintain his balance. Pronator drift test and Romberg test are negative. Patient is alert and oriented x4. Last Recorded V/S: Last Vital Signs Temp 36.8 C 04/04/21 12:17 Pulse 117 H 04/04/21 12:17 Resp 17 04/04/21 12:17 BP 175/94 H 04/04/21 12:17 Pulse Ox 97 04/04/21 12:17 - Orders/Labs/Meds Orders: Active Orders 24 hr Category Date Time Status Abdomen Pelvis wo Cont [CT] Stat Exams 04/04/21 14:55 Taken CHLAMYDIA/GC AMPLIFICATION Routine Lab 04/04/21 18:26 Ordered PANEL [id number] (HIV AG/AB W RFX) Routine Lab 04/04/21 18:26 Ordered MVI, Adult with Vitamin K [Infuvite Adult] 10 ml Med 04/04/21 15:30 Active Thiamine [Vitamin B-1] 100 mg Folic Acid 1 mg Magnesium Sulfate [Magnesium Sulfate 50%] 3 gm Sodium Chloride 0.9% [Normal Saline] 1,000 ml IV ASDIRECTED Medication Orders Multivitamins/Minerals 10 ml/Thiamine HCl 100 mg/ Folic Acid 1 mg/ Magnesium Sulfate 3 gm/ Sodium Chloride 1,017.2 mls @ 999 mls/hr IV ASDIRECTED DIETER Last Admin: 04/04/21 15:57 Dose: 999 mls/hr Documented by: EMERITA Labs: Laboratory Tests 04/04/21 04/04/21 04/04/21 Range/Units 13:15 13:15 13:15 WBC 5.9 (3.2-10.1) x10-3/uL RBC 5.01 (3.90-5.90) x10(6)uL Hgb 16.0 (12.9-17.7) g/dL Hct 47.9 (38.3-50.1) % MCV 95.6 (80.8-98.7) fL MCH 31.9 (27.0-33.3) pg MCHC 33.4 (28.7-35.3) g/dL RDW 13.8 (12.4-15.0) % Plt Count 165 (117-477) x10(3)uL MPV 7.9 (6.7-11.0) fL Neut % (Auto) 46.3 (40.3-71.8) % Lymph % (Auto) 38.7 (15.8-45.3) % [place] % (Auto) 13.8 (5.5-15.2) % Eos % (Auto) 0.5 (0.1-6.8) % Baso % (Auto) 0.7 (0.3-3.8) % Neut # (Auto) 2.8 (1.7-6.9) x10-3/uL Lymph # (Auto) 2.3 (0.5-4.5) x10-3/uL [place] # (Auto) 0.8 (0.0-1.2) x10-3/uL Eos # (Auto) 0.0 (0.0-0.6) x10-3/uL Baso # (Auto) 0.0 (0.0-0.3) x10-3/uL Sodium 146 H (135-145) mmol/L Potassium 3.8 (3.5-5.3) mmol/L Chloride 104 (100-110) mmol/L Carbon Dioxide 28 (21-32) mmol/L BUN 9 (7-18) mg/dL Creatinine 0.7 (0.70-1.30) mg/dL Est Cr Clr Drug Dosing TNP Estimated GFR (MDRD) > 60 (>60) BUN/Creatinine Ratio 12.9 (9-20) Glucose 91 (80-116) mg/dL Calcium 8.1 L (8.6-10.2) mg/dL Total Bilirubin 0.3 (0.1-1.3) mg/dL AST 55 H D (5-25) IU/L ALT 38 H (12-36) U/L Alkaline Phosphatase 74 (56-112) IU/L Total Protein 7.4 (6.0-8.0) g/dL Albumin 4.1 (3.5-5.2) g/dL Globulin 3.3 g/dL Albumin/Globulin Ratio 1.2 Urine Color (YELLOW) Urine Appearance (CLEAR) Urine pH (5.0-6.5) Ur Specific [place] (1.010-1.025) Urine Protein (NEGATIVE) mg/dL Urine Glucose (UA) (NORMAL) mg/dL Urine Ketones (NEGATIVE) mg/dL Urine Occult Blood (NEGATIVE) Urine Nitrite (NEGATIVE) Urine Bilirubin (NEGATIVE) Urine Urobilinogen (NEGATIVE) mg/dL Ur Leukocyte Esterase (NEGATIVE) U Hyaline Cast (Auto) (NS) Urine RBC (0-5) Urine WBC (0-5) Ur Squamous Epith Cells (NS,R,O) Urine Bacteria (NS) Urine Opiates Screen (NEGATIVE) Ur Oxycodone Screen (NEGATIVE) Ur Propoxyphene Screen (NEGATIVE) Ur Barbituates Screen (NEGATIVE) Ur Tricyclics Screen (NEGATIVE) Ur Phencyclidine Scrn (NEGATIVE) Ur Amphetamine Screen (NEGATIVE) Urine MDMA Screen (NEGATIVE) U Benzodiazepines Scrn (NEGATIVE) U Cocaine Metab Screen (NEGATIVE) U Marijuana (THC) Screen (NEGATIVE) Ethyl Alcohol 0.47 H* (<0.03) % 04/04/21 04/04/21 Range/Units 14:45 14:45 WBC (3.2-10.1) x10-3/uL RBC (3.90-5.90) x10(6)uL Hgb (12.9-17.7) g/dL Hct (38.3-50.1) % MCV (80.8-98.7) fL MCH (27.0-33.3) pg MCHC (28.7-35.3) g/dL RDW (12.4-15.0) % Plt Count (117-477) x10(3)uL MPV (6.7-11.0) fL Neut % (Auto) (40.3-71.8) % Lymph % (Auto) (15.8-45.3) % [place] % (Auto) (5.5-15.2) % Eos % (Auto) (0.1-6.8) % Baso % (Auto) (0.3-3.8) % Neut # (Auto) (1.7-6.9) x10-3/uL Lymph # (Auto) (0.5-4.5) x10-3/uL [place] # (Auto) (0.0-1.2) x10-3/uL Eos # (Auto) (0.0-0.6) x10-3/uL Baso # (Auto) (0.0-0.3) x10-3/uL Sodium (135-145) mmol/L Potassium (3.5-5.3) mmol/L Chloride (100-110) mmol/L Carbon Dioxide (21-32) mmol/L BUN (7-18) mg/dL Creatinine (0.70-1.30) mg/dL Est Cr Clr Drug Dosing Estimated GFR (MDRD) (>60) BUN/Creatinine Ratio (9-20) Glucose (80-116) mg/dL Calcium (8.6-10.2) mg/dL Total Bilirubin (0.1-1.3) mg/dL AST (5-25) IU/L ALT (12-36) U/L Alkaline Phosphatase (56-112) IU/L Total Protein (6.0-8.0) g/dL Albumin (3.5-5.2) g/dL Globulin g/dL Albumin/Globulin Ratio Urine Color Yellow (YELLOW) Urine Appearance Clear (CLEAR) Urine pH 7.0 H (5.0-6.5) Ur Specific [place] 1.015 (1.010-1.025) Urine Protein Negative (NEGATIVE) mg/dL Urine Glucose (UA) Normal (NORMAL) mg/dL Urine Ketones Negative (NEGATIVE) mg/dL Urine Occult Blood Negative (NEGATIVE) Urine Nitrite Negative (NEGATIVE) Urine Bilirubin Negative (NEGATIVE) Urine Urobilinogen Normal (NEGATIVE) mg/dL Ur Leukocyte Esterase Negative (NEGATIVE) U Hyaline Cast (Auto) Few H (NS) Urine RBC 0-5 (0-5) Urine WBC 0-5 (0-5) Ur Squamous Epith Cells Few H (NS,R,O) Urine Bacteria Few H (NS) Urine Opiates Screen Negative (NEGATIVE) Ur Oxycodone Screen Negative (NEGATIVE) Ur Propoxyphene Screen Negative (NEGATIVE) Ur Barbituates Screen Negative (NEGATIVE) Ur Tricyclics Screen Negative (NEGATIVE) Ur Phencyclidine Scrn Negative (NEGATIVE) Ur Amphetamine Screen Negative (NEGATIVE) Urine MDMA Screen Positive H (NEGATIVE) U Benzodiazepines Scrn Negative (NEGATIVE) U Cocaine Metab Screen Negative (NEGATIVE) U Marijuana (THC) Screen Positive H (NEGATIVE) Ethyl Alcohol (<0.03) % Meds: Medications Generic Name Dose Route Start Last Admin Trade Name Freq PRN Reason Stop Dose Admin Multivitamins/Minerals 10 ml/ 1,017.2 mls @ 999 mls/hr 04/04/21 15:30 04/04/21 15:57 Thiamine HCl 100 mg/ Folic IV 999 mls/hr Acid 1 mg/ Magnesium Sulfate 3 ASDIRECTED DIETER Administration gm/ Sodium Chloride Discontinued Medications Generic Name Dose Route Start Last Admin Trade Name Freq PRN Reason Stop Dose Admin Sodium Chloride 1,000 mls @ 150 mls/hr 04/04/21 14:15 04/04/21 14:23 Normal Saline IV 150 mls/hr ASDIRECTED DIETER Administration Ketorolac Tromethamine 30 mg 04/04/21 14:01 04/04/21 14:27 Ketorolac 30 Mg/Ml Sdv IM 04/04/21 14:02 Not Given ONETIME ONE Ketorolac Tromethamine 30 mg 04/04/21 14:25 04/04/21 14:28 Ketorolac 30 Mg/Ml Sdv IVPUSH 04/04/21 14:26 30 mg ONETIME ONE Administration Ketorolac Tromethamine 30 mg 04/04/21 18:26 Ketorolac 30 Mg/Ml Sdv IVPUSH 04/04/21 18:27 ONETIME ONE Departure - Departure Time of Disposition: 18:31 Disposition: Home, Self-Care 01 Clinical Impression: Nephrolithiasis, Alcohol abuse Acute alcohol intoxication Qualifiers: Complication of substance-induced condition: uncomplicated Qualified Code(s): F10.920 - Alcohol use, unspecified with intoxication, uncomplicated - Discharge Information *PRESCRIPTION DRUG MONITORING PROGRAM REVIEWED*: Not Applicable *COPY OF PRESCRIPTION DRUG MONITORING REPORT IN PATIENT KELLY: Not Applicable Instructions: Alcohol Use Disorder, Substance Use Disorder and Mental Illness, Kidney Stones, [id number], Illegal Drug Use Information, Adult, Alcohol Abuse and Dependence Information, Adult, Recovering From Addiction Forms: ED Department Discharge Sepsis Event Note (ED) - Focused Exam Vital Signs: Vital Signs Temp Pulse Resp BP Pulse Ox 04/04/21 12:17 36.8 C 117 H 17 175/94 H 97 - My Orders Last 24 Hours: My Active Orders 04/04/21 14:55 Abdomen Pelvis wo Cont [CT] Stat 04/04/21 15:30 MVI, Adult with Vitamin K [Infuvite Adult] 10 ml Thiamine [Vitamin B-1] 100 mg Folic Acid 1 mg Magnesium Sulfate [Magnesium Sulfate 50%] 3 gm Sodium Chloride 0.9% [Normal Saline] 1,000 ml IV ASDIRECTED 04/04/21 18:26 CHLAMYDIA/GC AMPLIFICATION Routine PANEL [id number] (HIV AG/AB W RFX) Routine - Assessment/Plan Last 24 Hours: My Active Orders 04/04/21 14:55 Abdomen Pelvis wo Cont [CT] Stat 04/04/21 15:30 MVI, Adult with Vitamin K [Infuvite Adult] 10 ml Thiamine [Vitamin B-1] 100 mg Folic Acid 1 mg Magnesium Sulfate [Magnesium Sulfate 50%] 3 gm Sodium Chloride 0.9% [Normal Saline] 1,000 ml IV ASDIRECTED 04/04/21 18:26 CHLAMYDIA/GC AMPLIFICATION Routine PANEL [id number] (HIV AG/AB W RFX) Routine
[2021-04-04] MEDS ORDERED: Ketorolac 30 MG/ML SDV IM ONE (14:01)
[2021-04-04] MEDS ORDERED: Sodium Chloride 0.9% 1,000 ML IV SCH (14:15)
[2021-04-04] MEDS ORDERED: Ketorolac 30 MG/ML SDV IVPUSH ONE ×2 (14:25→18:26)
[2021-04-04] MEDS ORDERED: MVI, Adult with Vitamin K 10 ML, Thiamine 100 MG, Folic Acid 1 MG, Magnesium Sulfate 3 ... IV SCH ×5 (15:30)
[2021-04-06 09:18] LABS: HIV SCREEN 4TH GENERATION WRFX Non Reactive (Non Reactive)
[2021-04-07 08:15] LABS: CHLAMYDIA TRACHOMATIS, NAA Negative (Negative); NEISSERIA GONORRHOEAE, NAA Negative (Negative)
[2021-04-07 09:15] LABS: TREPONEMA PALLIDUM ANTIBODIES Non Reactive (Non Reactive)
== END 2021-04-04 19:00 | disposition home or self-care (01) ==
LOC: FB.ED 12:17
DX: N20.0 Calculus of kidney (principal); F10.120 Alcohol abuse with intoxication, uncomplicated; Y90.0 Blood alcohol level of less than 20 mg/100 ml; Z88.0 Allergy status to penicillin; Z88.8 Allergy status to other drugs, medicaments and biological substances; Z88.5 Allergy status to narcotic agent
CPT/HCPCS: 36415; 74176; 80053; 80305-QW; 80307; 81001; 85025; 86593; 86780; 87389; 87491; 87591; 96365; 96375; 96376; 99284-25; J1885; J3411; J3475; J3490; J7030

== ENCOUNTER 2021-04-05 01:27 | Emergency (ER) | payer MEDICAID ==
[2021-04-05] MEDS ORDERED: HYDROmorphone 2 MG/ML SDV IVPUSH ONE (02:20)
--- NOTE | 2021-04-05 02:47 | EDM.PDOC ---
ED HPI GENERAL MEDICAL PROBLEM - General Chief Complaint: General Stated Complaint: PATIENT BROUGHT IN BY EMT ANXIETY Time Seen by Provider: 04/05/21 01:50 Source of Information: Reports: Patient, Old Records, Provider History Limitations: Reports: No Limitations - History of Present Illness INITIAL COMMENTS - FREE TEXT/NARRATIVE: 31-year-old gentleman came to the emergency department via EMS secondary to severe pain in his penile urethra. He was evaluated earlier today and found to have nonobstructing renal stones in his right kidney. He has a stated history of multiple episodes of passing stones. Note that earlier evaluation today also found a blood alcohol level of 0.47 and UDS was positive for marijuana and NMDA. He states that he cannot urinate secondary to penile pain. 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 Gastrointestinal History: Reports: Other (See Below) Other Gastrointestinal History: Episodes of vomiting. Genitourinary History: Reports: Renal Calculus Musculoskeletal History: Reports: Other (See Below) Other Musculoskeletal History: Patient reports history of spinal stenosis. Neurological History: Reports: Seizure, Other (See Below) Other Neuro History: Patient reports history of drop seizure disorder as a ch ild. Psychiatric History: Reports: ADHD, Addiction, Anxiety, Depression, OCD, Panic Attack, PTSD Other Psychiatric History: Currently not treated; reports taking Zoloft in the past. States drinks alcohol daily and marijuana use. Separation anxiety. - Infectious Disease History Infectious Disease History: Reports: Chicken Pox - Past Surgical History HEENT Surgical History: Reports: Oral Surgery Social & Family History - Family History Family Medical History: No Pertinent Family History - Tobacco Use Tobacco Use Status *Q: Heavy Tobacco User Years of Tobacco use: 18 Packs/Tins Daily: 0.5 - Caffeine Use Caffeine Use: Reports: None - Recreational Drug Use Recreational Drug Use: Yes Recreational Drug Type: Reports: Marijuana/Hashish Recreational Drug Use Frequency: Patient Refuses To Answer - Living Situation & Occupation Occupation: Unemployed ED ROS GENERAL - Review of Systems Review Of Systems: See Below Constitutional: Reports: No Symptoms HEENT: Reports: No Symptoms Respiratory: Reports: No Symptoms Cardiovascular: Reports: No Symptoms Endocrine: Reports: No Symptoms GI/Abdominal: Reports: Abdominal Pain : Reports: Pain, Urinary Retention Musculoskeletal: Reports: No Symptoms Skin: Reports: No Symptoms Neurological: Reports: No Symptoms Psychiatric: Reports: Anxiety Hematologic/Lymphatic: Reports: No Symptoms Immunologic: Reports: No Symptoms ED EXAM, GENERAL - Physical Exam Exam: See Below Exam Limited By: No Limitations General Appearance: Alert, WD/WN, Moderate Distress Head: Atraumatic, Normocephalic Respiratory/Chest: No Respiratory Distress, Lungs Clear, Normal Breath Sounds Cardiovascular: Normal Peripheral Pulses, No Edema, No Murmur, Tachycardia Peripheral Pulses: 2+: Radial (L), Radial (R), Dorsalis Pedis (L), Dorsalis Pedis (R) GI/Abdominal: Normal Bowel Sounds, Non-Tender (Male) Exam: Circumcised. No: Scrotal Swelling, Scrotum Tenderness (L), Scrotum Tenderness (R), Testicular Mass, Testicular Tenderness (L), Testicular Tenderness (R), Urethral Discharge Neurological: Alert, Oriented Psychiatric: Anxious Skin Exam: Warm, Dry, Intact Course - Vital Signs Text/Narrative:: Appreciate Dr. Parson, urology. Patient will be transferred to [facility] in [place], [place] for urologic evaluation. Bladder scan performed here showed 32 mL in the bladder. CBC, CMP, blood alcohol level, and prior CT imaging has been and are will be made available for transferring facility. Last Recorded V/S: Last Vital Signs Temp 36.8 C 04/05/21 01:35 Pulse 103 H 04/05/21 03:00 Resp 18 04/05/21 03:00 BP 163/107 H 04/05/21 03:00 Pulse Ox 96 04/05/21 03:00 - Orders/Labs/Meds Orders: Active Orders 24 hr Category Date Time Status Bladder Scan [RC] ASDIRECTED Care 04/05/21 02:16 Active Labs: Laboratory Tests 04/05/21 04/05/21 04/05/21 Range/Units 02:25 02:25 02:25 WBC 5.1 (3.2-10.1) x10-3/uL RBC 4.70 (3.90-5.90) x10(6)uL Hgb 15.1 (12.9-17.7) g/dL Hct 45.2 (38.3-50.1) % MCV 96.2 (80.8-98.7) fL MCH 32.2 (27.0-33.3) pg MCHC 33.4 (28.7-35.3) g/dL RDW 13.8 (12.4-15.0) % Plt Count 146 (117-477) x10(3)uL MPV 8.2 (6.7-11.0) fL Neut % (Auto) 59.0 (40.3-71.8) % Lymph % (Auto) 31.5 (15.8-45.3) % [place] % (Auto) 8.8 (5.5-15.2) % Eos % (Auto) 0.1 (0.1-6.8) % Baso % (Auto) 0.6 (0.3-3.8) % Neut # (Auto) 3.0 (1.7-6.9) x10-3/uL Lymph # (Auto) 1.6 (0.5-4.5) x10-3/uL [place] # (Auto) 0.5 (0.0-1.2) x10-3/uL Eos # (Auto) 0.0 (0.0-0.6) x10-3/uL Baso # (Auto) 0.0 (0.0-0.3) x10-3/uL Sodium 144 (135-145) mmol/L Potassium 3.8 (3.5-5.3) mmol/L Chloride 103 (100-110) mmol/L Carbon Dioxide 24 (21-32) mmol/L BUN 7 (7-18) mg/dL Creatinine 0.8 (0.70-1.30) mg/dL Est Cr Clr Drug Dosing 109.46 mL/min Estimated GFR (MDRD) > 60 (>60) BUN/Creatinine Ratio 8.8 L (9-20) Glucose 83 (80-116) mg/dL Calcium 8.4 L (8.6-10.2) mg/dL Total Bilirubin 0.3 (0.1-1.3) mg/dL AST 66 H D (5-25) IU/L ALT 39 H (12-36) U/L Alkaline Phosphatase 73 (56-112) IU/L Total Protein 7.5 (6.0-8.0) g/dL Albumin 4.2 (3.5-5.2) g/dL Globulin 3.3 g/dL Albumin/Globulin Ratio 1.3 Ethyl Alcohol 0.33 H* (<0.03) % Meds: Medications Discontinued Medications Generic Name Dose Route Start Last Admin Trade Name Freq PRN Reason Stop Dose Admin Hydromorphone HCl 1 mg 04/05/21 02:20 04/05/21 02:35 Hydromorphone 2 Mg/Ml Sdv IVPUSH 04/05/21 02:21 1 mg ONETIME ONE Administration Departure - Departure Time of Disposition: 03:05 Disposition: DC/Tfer to Critical Access 66 Clinical Impression: Penile pain - Discharge Information *PRESCRIPTION DRUG MONITORING PROGRAM REVIEWED*: Not Applicable *COPY OF PRESCRIPTION DRUG MONITORING REPORT IN PATIENT KELLY: Not Applicable Referrals: PCP,None [Primary Care Provider] - Forms: ED Department Discharge Sepsis Event Note (ED) - Evaluation Sepsis Screening Result: No Definite Risk - Focused Exam Vital Signs: Vital Signs Temp Pulse Resp BP Pulse Ox 04/05/21 03:00 103 H 18 163/107 H 96 04/05/21 02:29 105 H 16 136/93 H 97 04/05/21 02:12 92 18 143/98 H 95 04/05/21 01:35 36.8 C 105 H 16 146/115 H 95 - My Orders Last 24 Hours: My Active Orders 04/05/21 02:16 Bladder Scan [RC] ASDIRECTED - Assessment/Plan Last 24 Hours: My Active Orders 04/05/21 02:16 Bladder Scan [RC] ASDIRECTED
[2021-04-05] MEDS ORDERED: HYDROmorphone 2 MG/ML SDV IM ONE (03:19)
== END 2021-04-05 03:45 | disposition critical access hospital (66) ==
LOC: FB.ED 01:27
DX: N48.89 Other specified disorders of penis (principal); Z88.0 Allergy status to penicillin; Z88.1 Allergy status to other antibiotic agents; Z88.5 Allergy status to narcotic agent; Z88.8 Allergy status to other drugs, medicaments and biological substances; Z72.0 Tobacco use
CPT/HCPCS: 36415; 80053; 80307; 85025; 96372; 96374; 99285-25; J1170